=== PATIENT | male | born 1945 | race Caucasian/White ===

== ENCOUNTER 2020-10-25 09:40 | Outpatient (CLI) | payer MEDICARE, OTHER, SELFPAY ==
--- NOTE | ~2020-10-25 | XR_ITS ---
XR knee RT 3V 10/25/2020 10:01 Indication: Right knee pain Procedure: 3 views right knee Comparison: No prior studies for comparison. Findings: Moderate osteoarthritis of the right knee. No fracture or traumatic malalignment. Small elie nt effusion. No radiopaque foreign bodies. Impression: 1: Moderate osteoarthritis of the right knee. Reviewed, dictated and finalized at location A. NE MECHANIC Impression: 1: Moderate osteoarthritis of the right knee.
--- NOTE | ~2020-10-25 | XR_ITS ---
EXAMINATION: XR lumbar spine 2-3V EXAM DATE: 10/25/2020 10:01 INDICATION: No known recent injury provided at this time. Pain of the low back. TECHNIQUE: Lumber spine frontal, lateral, lateral L5-S1 projections for interpretation. There is no prior study for comparison. FINDINGS: Mild to moderate disc disease L4-S1, and at L2-3. The vertebral bodies are aligned in the A P dimension. No evidence of spondylolysis. Minimal thoracolumbar levoscoliosis. Sacrum, sacroiliac lane ints, sacral arcuate lines are intact. There is moderate lower lumbar facet arthropathy. IMPRESSION: 1. Moderate lower lumbar facet arthropathy. 2. Mild to moderate disc disease. Reviewed, dictated and finalized at location A. MARKETING ANALYST
== END 2020-10-25 09:41 | disposition home or self-care (01) ==
PROVIDERS: PCP Internal Medicine; Visit Provider Nurse Practitioner
DX: M47.817 Spondylosis without myelopathy or radiculopathy, lumbosacral region (principal); M17.11 Unilateral primary osteoarthritis, right knee; M25.461 Effusion, right knee
CPT/HCPCS: 72100; 73562

== ENCOUNTER 2020-12-10 12:30 | Outpatient (RCR) | payer MEDICARE, OTHER, SELFPAY ==
--- NOTE | 2020-11-03 15:50 | PTOPEVAL ---
Thank you for referring Sean Mendez to [facility].? The patient is scheduled to be seen for therapy? 1x/week for 6 weeks. Please review, sign, date and return this plan of care JING. I agree with and certify that the following plan of care is medically necessary. Referring Physician Date Attending Provider: Kristina Lozano NP *PT Outpatient Evaluation Start: 11/03/20 09:06 Freq: Status: Active Protocol: Document 11/03/20 09:06 YURIDIA (Rec: 11/03/20 10:12 YURIDIA [id number]) Therapy Assessment Status Assessment Status Assessment Status Evaluation Outpatient Past Medical History Past Medical History Source of Past Medical History Patient,Recalled from Previous Visit, Confirmed with Patient /Family Cardiovascular History Hx Hypertension Yes Genitourinary History Hx Other Genitourinary Disorders Yes: CKD with kidney removal Musculoskeletal History Hx Arthritis Yes Hx Back Pain Yes Endocrine History Hx Diabetes Yes Other History Hx Cancer Yes: renal Evaluation Information Problem Diagnosis low back pain, right knee pain Onset 10/22/20 Cause unknown Additional Evaluation Detail right kidney removed due to CA Subjective Information He reports his back pain has Query Text:As Reported By Patient/ been chronic, with severe Family increase of his pain ~ 2 wk ago. He has had difficulty walking for some time. He was performing more walking and standing that facilitated the increase in pain and symptoms. He had increased pain with walking, standing and sitting. States the pain is greater in his knee vs his buttock region. He is able to lift objects, but unable to walk or move with a weighted object. 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 He was performing dep transfers towards the end of his lift. He did feel like is was his back performing most of the lifting. Diagnostic Tests X-Rays For This Problem Yes: Moderate lower lumbar facet arthropathy, Moderate OA
--- NOTE | 2020-12-10 14:12 | PTOPEVAL ---
Thank you for referring Sean Mendez to [facility].? Pt has received 6 therapy visits to address his buttock/knee pain. He demonstrates progress with functional mobility with improved walking speed, improve endurance, improved LE strength, improved joint motion. He is able to perform normal daily activities with decreased pain. He has achieved most his therapy goals at this time. DC skilled therapy with pt to cont with a HEP. Please review, sign, date and return this plan of care JING. I agree with and certify that the following plan of care is medically necessary. Referring Physician Date Attending Provider: Kristina Lozano NP Referring Provider: *PT Outpatient Evaluation Start: 11/03/20 09:06 Freq: Status: Active Protocol: Document 12/10/20 12:36 CAP (Rec: 12/10/20 13:31 CAP [id number]) Therapy Assessment Status Assessment Status Assessment Status Re-evaluation Outpatient Past Medical History Past Medical History Source of Past Medical History Patient,Recalled from Previous Visit, Confirmed with Patient /Family Cardiovascular History Hx Hypertension Yes Genitourinary History Hx Other Genitourinary Disorders Yes: CKD with kidney removal Musculoskeletal History Hx Arthritis Yes Hx Back Pain Yes Endocrine History Hx Diabetes Yes Other History Hx Cancer Yes: renal Evaluation Information Problem Diagnosis low back pain, right knee pain Onset 10/22/20 Cause unknown Additional Evaluation Detail right kidney removed due to CA He reports his back pain has been chronic, with severe increase of his pain ~ 2 wk ago. He has had difficulty walking for some time. Subjective Information Since he had his knee drained Query Text:As Reported By Patient/ and an injection his knee is Family feeling much better. He is able to tolerate standing for 1 hour then had increased discomfort. Denies any problems with sitting. Denies changes in pain with lifting or carrying objects. He is performing his HEP daily Pain Assessment Timing of Pain Assessment Timing of Pain Assessment Re-assessment Pain Scale Pain Scale Used Numeric (1 - 10) Self Report Pain Assessment Right Knee(s) Reported Pain Level 1 Lowest Pain Intensity 0 Greatest Pain Intensity 3 Right Butt
== END 2020-12-14 08:01 | disposition home or self-care (01) ==
LOC: ANHPT 12:30
PROVIDERS: PCP Internal Medicine; Visit Provider Nurse Practitioner
DX: M54.41 Lumbago with sciatica, right side (principal); G89.29 Other chronic pain
CPT/HCPCS: 97110; 97162

== ENCOUNTER 2021-08-11 07:44 | Inpatient (IN) | payer MEDICARE, OTHER, SELFPAY ==
[2021-08-11] VITALS (21 sets, daily range): BP systolic 111–138; BP diastolic 71–108; PULSE 132–159; RESP 16–24; TEMP 36.6–37.1; O2SAT 97–100; BMI 29.4
--- NOTE | 2021-08-11 | ECHO_ITS ---
Patient Info Name: Sean Mendez Age: 75 years : 1945 Gender: Male Ht: 74 in Wt: 241 lbs BSA: 2.41 m2 HR: 140 bpm BP: 129 / 98 mmHg Heart Rhythm: Atrial Fibrillation Technical Quality: Fair Exam Date: 08/11/2021 1:32 PM Exam Location: [facility] Pulmonary Exam Room: [facility] Patient Status: Inpatient Admit Date: 08/11/2021 Staff Ordering Physician: Patrice Albrecht DO Analytics Director: Vanessa Gonzalez RDCS Attending Provider: Austyn Fields MD Referring Physician: Ambrocio ZHOU; Exam Type: CA echo doppler color flow Study Info Indications - new afib Complete two-dimensional, color flow and Doppler transthoracic echocardiogram is performed. Summary 1. Complete two-dimensional, color flow and Doppler transthoracic echocardiogram is performed. 2. Left ventricular chamber dimension is normal. 3. Left ventricular systolic function is normal, estimated at 60-65%. 4. There is mildly increased left ventricular wall thickness. 5. The left ventricular diastolic function is normal. 6. E/e' 8 is minimally elevated. 7. Atrial fibrillation. 8. Left atrial chamber dimension is severely enlarged. 9. Right atrial chamber dimension is severely enlarged. 10. There is moderate aortic valve sclerosis. 11. There is mild aortic valve regurgitation. 12. The mitral valve has mildly calcified annulus. 13. There is mild tricuspid valve regurgitation. 14. No pulmonary hypertension, estimated pulmonary arterial systolic pressure is 33 mmHg. 15. Normal inferior vena cava with <50% collapse upon inspiration consistent with elevated right atrial pressure, 10 mmHg. Left Ventricle Atrial fibrillation. E/e' 8 is minimally elevated. Left ventricular chamber dimension is normal. Left ventricular systolic function is normal, estimated at 60-65%. There is mildly increased left ventricular wall thickness. The left ventricular diastolic function is normal. Right Ventricle Right ventricular chamber dimension is normal. Right ventricular systolic function is normal. Left Atria Left atrial chamber dimension is severely enlarged. Right Atria Right atrial chamber dimension is severely enlarged. Aortic Valve The aortic valve is not well visualized. Cannot determine number of aortic valve leaflets. There is moderate aortic valve sclerosis. There is no aortic valve stenosis. There is mild aortic valve regurgitation. Pulmonic Valve There is no pulmonic regurgitation. Mitral Valve The mitral valve has mildly calcified annulus. There is no mitral valve stenosis. There is no mitral valve regurgitation. Tricuspid Valve There is mild tricuspid valve regurgitation. No pulmonary hypertension, estimated pulmonary arterial systolic pressure is 33 mmHg. Pericardium/Pleural There is no pericardial effusion. Inferior Vena Cava Normal inferior vena cava with <50% collapse upon inspiration consistent with elevated right atrial pressure, 10 mmHg. Aorta The aortic root size at the sinus of Valsalva is normal. Left Ventricular Outflow Tract Name Value Normal LVOT 2D LVOT Diameter 2.2 cm LVOT Doppler LVOT P
--- NOTE | ~2021-08-11 | XR_ITS ---
EXAMINATION: XR chest 2V EXAM DATE: 08/11/2021 08:09 INDICATION: Chest tightness. History hypertension. TECHNIQUE: Frontal and lateral projections of the chest obtained and reviewed. There is no prior dillon dy for comparison. FINDINGS: The lungs are clear. There are no pleural effusions. The cardiomediastinal silhouette is within normal limits. There is no pneumothorax suspected. The bones and soft tissues are unremarkab le. IMPRESSION: No acute cardiopulmonary findings. Reviewed, dictated and finalized at location A.
--- NOTE | 2021-08-11 07:57 | ECG_ITS ---
Measurements Intervals [place] Rate: 155 P: [place]: 0 QRS: -19 QRSD: 91 T: 138 QT: 280 QTc: 451 Interpretive Statements ATRIAL FIBRILLATION WITH RAPID VENTRICULAR RESPONSE INCOMPLETE RIGHT BUNDLE BRANCH BLOCK NONSPECIFIC ST & T-WAVE ABNORMALITY- ANTEROLAT/HIGH LAT LEADS BASELINE ARTIFACT- I, II, AVR ABNORMAL ECG Electronically Signed On 08-11-2021 9:53:35 CDT by Patrice Albrecht D.O.
[2021-08-11] MEDS: dilTIAZem HCl INJ 25 MG/5 ML VIAL 10 MG IV PUSH ×2 (08:03→08:22)
[2021-08-11 08:14] LABS: Basophils Absolute Auto 0.1 K/mm3 (0.0-0.1); Basophils Percent Auto 0.7 % (0.2-1.2); Eosinophils Absolute Auto 0.2 K/mm3 (0-0.3); Eosinophils Percent Auto 1.5 % (0-4.4); Hematocrit 40.2 % (42.0-52.0); Hemoglobin 13.8 g/dL (14.0-18.0); Immature Granulocyte Absolute 0.06 K/mm3 (0.00-0.031); Immature Granulocyte Percent A 0.6 % (0-0.5); Lymphocytes Absolute Auto 1.64 K/mm3 (0.9-3.2); Lymphocytes Percent Auto 15.5 % (18.3-44.2); Mean Corpuscular HGB Conc 34.3 g/dl (32-36); Mean Corpuscular Hemoglobin 32.3 pg (26-34); Mean Corpuscular Volume 94.1 fl (80-100); Mean Platelet Volume 11.1 fl (7.4-10.4); Monocytes Percent Auto 9.6 % (2.6-8.5); Neutrophils Absolute Auto 7.7 K/mm3 (1.3-6.7); Neutrophils Percent Auto 72.1 % (45.5-73.1); Platelet Count Result 192 k/mm3 (150-375); Red Blood Count 4.27 M/mm3 (4.6-6.20); Red Cell Distribution Width 12.8 % (11.5-14.5); White Blood Count 10.6 K/mm3 (4.5-10.0)
[2021-08-11 08:17] LABS: Anion Gap 11 mmol/L (8-16); Blood Urea Nitrogen 22 mg/dL (9-20); Calcium 8.9 mg/dL (8.4-10.2); Carbon Dioxide 21 mmol/L (22-30); Chloride 109 mmol/L (98-107); Estimated CRCL calculation 54 ml/min; Estimated Glomerular Filt Rate 49; Glucose 184 mg/dL (65-110); Sodium 141 mmol/L (137-145)
[2021-08-11 08:28] LABS: INR 0.9; Prothrombin Time 12.5 Seconds (11.1-14.7)
[2021-08-11 08:29] LABS: Partial Thromboplastin Time 24.9 SECONDS (22.3-36.8)
[2021-08-11 08:30] LABS: Troponin I < 0.012 ng/mL (0.000-0.034)
--- NOTE | 2021-08-11 09:05 | ED.GENADULT ---
HPI - General Adult General Chief complaint: Weakness Stated complaint: Weakness Time Seen by Provider: 08/11/21 08:02 History of Present Illness HPI narrative: Patient is a 75-year-old male who presents ER with weakness. Ongoing for the last 3 days. No chest pain or chest pressure. No shortness of breath. Reports mild orthopnea. No history of irregular heart rate. No new medications. Reports compliance with home medications. Related Data Home Medications Medication Instructions Recorded Confirmed losartan 100 mg tablet 150 mg PO DAILY tablet 03/16/20 08/11/21 carvedilol 12.5 mg tablet 25 mg PO Q12H tablet 06/16/20 08/11/21 fluticasone propionate [Flonase 2 spray INTRANASAL DAILY PRN 08/11/21 08/11/21 Allergy Relief] insulin glargine [Lantus U-100 See Rx Instructions .ROUTE .COMPLEX 08/11/21 08/11/21 Insulin] Allergies Allergy/AdvReac Type Severity Reaction Status Date / Time Careless [place] Allergy Mild POISON LUCIANO Uncoded 08/11/21 08:01 Review of Systems Review of Systems: All systems reviewed & are unremarkable except as noted in HPI and below Constitutional: Constitutional: Denies chills, Denies fever(s) and Reports weakness ENT: Denies nasal congestion and Denies sore throat Cardiovascular: Cardiovascular: Denies chest pain, Denies rapid heart rate and Denies radiating jaw, neck or arm pain Respiratory: Respiratory: Denies cough and Denies dyspnea Comments: Orthopnea Gastrointestinal: Gastrointestinal: Denies nausea and Denies vomiting Musculoskeletal: Musculoskeletal: Denies back pain and Denies muscle cramps PMF Past Medical History Medical History (Updated 08/11/21 @ 17:21 by Abhinav Baez MD) Chronic anemia Chronic kidney disease, stage 3 Baseline creatinine ranges between 1.4 and 1.60. Gastroesophageal reflux disease Hyperlipidemia Hypertension Insulin dependent type 2 diabetes mellitus Hemoglobin A1c was 7.4% on 03/21/2021. 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 Right knee DJD Surgical History Surgical History (Updated 08/11/21 @ 13:28 by Vanessa Owens PA-C) History of cataract extraction History of colonoscopy with polypectomy History of inguinal hernia repair History of renal stent (~10/18/19) Left kidney: 10/18/19 History of right nephrectomy History of vasectomy Family History Family History Mother Family history of malignant neoplasm of brain Father Ruptured, aorta Other Arthritis Hypertension Lung disease Malignant neoplasm Social History Social History (Updated 08/11/21 @ 13:38 by Vanessa Owens PA-C) Social History: Surrogate decision maker: Aliyah Mendez, spouse. Code status: Full code. Smoking packs per day: 2.5 Smoking cigarettes per day: 50.0 Years smoked: 20 Smoking pack-years: 50.00 Smoking status: Former smoker Smoking end date: 11/12/89 Alcohol intake: current Drinks per week: 3 Alcohol use details: Pt drinks occasionally. Substance use: never Substance use type: does not use Additional living arrangements comments: Resides in [place] with his . Additional occupation/education comments: Retired. Exam Narrative: GENERAL: Well-appearing, well-nourished, and in no acute distress. HEAD: Normocephalic, atraumatic. EYES: PERRL and EOMI. CHEST: Clear to auscultation. No respiratory distress. HEART: Irregular regular rate and rhythm that is tachycardic. Normal peripheral pulses. ABDOMEN: Soft, nontender, nondistended. EXTREMITIES: Normal range of motion. No edema. SKIN: Warm, dry, no rash. NEURO: Alert and oriented x3. PSYCH: Normal mood and affect. Course Course Emergency Course: Patient informed of diagnosis and treatment plan. Admit to hospitalist service. No improvement with diltiazem patient will be placed on a diltiaze
[2021-08-11] MEDS: ENOXAPARIN 120 MG/0.8 ML SYRINGE 109 MG SUB-Q (09:16)
--- NOTE | 2021-08-11 09:55 | PM.CNCAR ---
Assessment and Plan Assessment and plan (1) Atrial fibrillation with rapid ventricular response: Code(s): I48.91 - Unspecified atrial fibrillation Status: Acute Assessment and Plan: [id number] 4. Received Lovenox shot. 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 Rate control with Diltiazem. If BP is low would decrease his anithypertensive medication and/or change Coreg to Metoprolol to allow for better rate control. Obtain echo. (2) Hypertension: Qualifiers: Hypertension type: essential hypertension Qualified Code(s): I10 - Essential (primary) hypertension Code(s): I10 - Essential (primary) hypertension Status: Acute Assessment and Plan: Stable. (3) Hyperlipidemia: Qualifiers: Hyperlipidemia type: unspecified Qualified Code(s): E78.5 - Hyperlipidemia, unspecified Code(s): E78.5 - Hyperlipidemia, unspecified Status: Acute Assessment and Plan: On Atorvastatin. (4) CKD (chronic kidney disease): Qualifiers: Chronic kidney disease stage: unspecified stage Qualified Code(s): N18.9 - Chronic kidney disease, unspecified Code(s): N18.9 - Chronic kidney disease, unspecified Status: Acute Assessment and Plan: Stable. (5) Type 2 diabetes mellitus: Qualifiers: Diabetes mellitus laborer marine terminal insulin use: with laborer marine terminal use Diabetes mellitus complication status: with kidney complications Diabetes mellitus complication detail: with chronic kidney disease Chronic kidney disease stage: stage 3 (moderate) Chronic kidney disease stage 3 subtype: stage 3b (GFR 30-44) Qualified Code(s): E11.22 - Type 2 diabetes mellitus with diabetic chronic kidney disease; N18.32 - Chronic kidney disease, stage 3b; Z79.4 - termite helper (current) use of insulin Code(s): E11.9 - Type 2 diabetes mellitus without complications Status: Acute Assessment and Plan: Managed by hospitalist. (6) Sleep apnea: Code(s): G47.30 - Sleep apnea, unspecified Status: Acute Assessment and Plan: May need outpatient CPAP titration study as it has been 17 years since he had one. History of Present Illness History of Present Illness Consult date/time: 08/11/21 09:55 Reason for consult: New atrial fib. 75 yr old man presents to ED for weakness. He has a history of right nephrectomy, DM, hypertension, dyslipidemia, VICTOR MANUEL on CPAP (for 17 years). Reports for last 2 days he noted weakness and fatigue. He can normally walk up to 1 block and limited by both knee pains from arthritis. In ED he is noted to be in atrial fib with RVR and Diltiazem drip is started. He received Lovenox shot also. Denies chest pain, sob, orthopnea, PND, edema, palpitations, dizziness. Reason For Visit: afib rvr Review of Systems Review of Systems: All systems reviewed & are unremarkable except as noted in HPI and below Constitutional: Constitutional: Reports as per HPI, Denies chills, Reports fatigue and Denies fever(s) Cardiovascular: Cardiovascular: Reports as per HPI, Denies chest pain, Denies irregular heart rhythm, Denies leg edema and Denies lightheadedness Respiratory: Respiratory: Reports as per HPI and Denies dyspnea Gastrointestinal: Gastrointestinal: Reports as per HPI and Denies abdominal pain Genitourinary: Genitourinary: Reports as per HPI and Denies dysuria Musculoskeletal: Musculoskeletal: Reports as per HPI Neurologic: Reports as per HPI, Denies dizziness and Denies syncope [facility] Past Medical History Medical History Anemia Cataract CKD (chronic kidney disease) Hyperlipidemia Hypertension Kidney disease Knee effusion, right VICTOR MANUEL (obstructive sleep apnea) Osteoarthritis Renal carcinoma 04/2017 Right knee DJD Sleep apnea Type 2 diabetes mellitus Surgical History Surgical History H/O kidney removal
[2021-08-11 12:47] LABS: Troponin I < 0.012 ng/mL (0.000-0.034)
--- NOTE | 2021-08-11 13:00 | PM.IMHP ---
H&P: HPI History of Present Illness Date/Time: 08/11/21 13:00 Chief Complaint: Generalized weakness. Narrative: This is a 75-year-old male with history of hypertension, diabetes, chronic kidney disease, and sleep apnea presented to the emergency department earlier today from home for evaluation of generalized weakness. Upon waking this morning he felt very weak and tired ?like I just ran a marathon.? In triage he was found to be in atrial fibrillation with rapid ventricular response and a heart rate of 151 and with further questioning he does report a history of ?dysrhythmia? as young man in the service though he is uncertain if it was ever labeled atrial fibrillation. He has not had palpitations for many years and in fact he denies palpitations at this time though he may have felt mild fluttering and even mild chest tightness earlier today though nothing significant. He does endorse shortness of breath when walking to the mailbox this morning. In the emergency department he was given a diltiazem bolus and he has since been started on a Cardizem drip without much improvement in his rate. Dr. Albrecht has been consulted at this time he recommends changing his carvedilol to metoprolol tartrate. The patient is compliant with his CPAP while sleeping though he has not had a sleep study for over 17 years. He has no history of thyroid disease to his knowledge. He drinks 3 to 4 cups of coffee a day and 1 to 3 glasses of wine, 3 to 4 days per week. No significant soda intake. He does not take supplements. Review of Systems Review of Systems: Twelve systems were reviewed with pertinent positives and negatives as per HPI. No fever, chills, sweats. No recent cold or flu symptoms. He denies sick contacts. No orthopnea, PND, or significant lower extremity edema. No pleuritic pain. He denies nausea, vomiting, and sweats. He and his took the [employer] to [place] recently and during that trip and upon returning home he noticed that his glucose was typically in the 200s and in fact his hemoglobin A1c was 8.3% at [place] not long ago. He has since had adjustments in his basal insulin with some improvement. No blurry vision, polydipsia, or polyuria. Except as documented, all other systems were reviewed and are negative. [facility] Past Medical History Medical History Chronic anemia Chronic kidney disease, stage 3 Baseline creatinine ranges between 1.4 and 1.60. Gastroesophageal reflux disease Hyperlipidemia Hypertension Insulin dependent type 2 diabetes mellitus Hemoglobin A1c was 7.4% on 03/21/2021. 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 Right knee DJD Surgical History Surgical History History of cataract extraction History of colonoscopy with polypectomy History of inguinal hernia repair History of renal stent (~10/18/19) Left kidney: 10/18/19 History of right nephrectomy History of vasectomy Family History Family History Mother Family history of malignant neoplasm of brain Father Ruptured, aorta Other Arthritis Hypertension Lung disease Malignant neoplasm Social History Social History (Updated 08/12/21 @ 00:00 by Vanessa Owens PA-C) Social History: Surrogate decision maker: Aliyahbrittaney Mendez, spouse. Code status: Full code. Smoking packs per day: 2.5 Smoking cigarettes per day: 50.0 Years smoked: 20 Smoking pack-years: 50.00 Smoking status: Former smoker Smoking end date: 11/12/89 Alcohol intake: current Drinks per week: 3 Alcohol use details: Patient drinks 1 to 3 glasses of wine, 3 to 4 days a week. Substance use: never Substance use type: does not use Additional living arrangements comments: Resides in [place] with his . Additional o
[2021-08-11] MEDS: METOPROLOL TARTRATE 25 MG TABLET PO ×2 (13:16→16:21)
--- NOTE | 2021-08-11 14:56 | ADMGEN ---
This patient, Sean Mendez, was admitted to IMU Room 207-01 @ 1110. Patient/family oriented to hospital policies and general routines including ID bracelet, bed and alarms, visiting hours, pain management, procedures, bathroom and other care routines, personal items, smoking policy, room service/diet, and visiting hours. Information on how to activate the Rapid Response Team has been discussed. Patient/Family are encouraged to report perceived risks to care and to ask questions if they do not understand what they are told or what they should do.
[2021-08-11 16:15] LABS: Troponin I < 0.012 ng/mL (0.000-0.034)
[2021-08-11 16:25] LABS: Glucose Point of Care 149 mg/dl (65-105)
[2021-08-11 16:47] LABS: Alanine Aminotransferase 22 U/L (4-50); Albumin Level 3.9 g/dL (3.5-5.1); Alkaline Phosphatase 75 U/L (38-126); Aspartate Amino Transferase 23 U/L (17-59); Bilirubin,Total 0.7 mg/dL (0.2-1.3); Magnesium 2.2 mg/dL (1.6-2.3)
[2021-08-11] MEDS: METOPROLOL TARTRATE 50 MG TAB PO ×2 (18:38→23:52)
[2021-08-11 20:30] LABS: Glucose Point of Care 190 mg/dl (65-105)
[2021-08-11] MEDS: INSULIN GLARGINE (*BKC) 100 UNITS/ML 25 UNITS SUB-Q (20:40)
[2021-08-11] MEDS: APIXABAN 5 MG TABLET PO (20:42)
[2021-08-11] MEDS: AMIODARONE 150 MG/D5W 100 ML 150 MG/100 ML BAG 600 MG IV CONT (21:06)
[2021-08-11] MEDS: AMIODARONE 360 MG/D5W 200 ML 360 MG/200 ML BAG 33.33 MG IV CONT (21:09)
[2021-08-12] VITALS (22 sets, daily range): BP systolic 121–150; BP diastolic 71–97; PULSE 64–147; RESP 15–22; TEMP 36.1–37.1; O2SAT 97–100
[2021-08-12] MEDS: AMIODARONE 360 MG/D5W 200 ML 360 MG/200 ML BAG 16.67 MG IV CONT ×2 (02:56→16:02)
[2021-08-12 05:09] LABS: Hematocrit 36.4 % (42.0-52.0); Hemoglobin 12.7 g/dL (14.0-18.0); Mean Corpuscular HGB Conc 34.9 g/dl (32-36); Mean Corpuscular Hemoglobin 32.6 pg (26-34); Mean Corpuscular Volume 93.3 fl (80-100); Mean Platelet Volume 11.3 fl (7.4-10.4); Platelet Count Result 191 k/mm3 (150-375); Red Cell Distribution Width 12.7 % (11.5-14.5); White Blood Count 12.1 K/mm3 (4.5-10.0)
[2021-08-12 05:27] LABS: Anion Gap 10 mmol/L (8-16); Blood Urea Nitrogen 20 mg/dL (9-20); Calcium 8.7 mg/dL (8.4-10.2); Carbon Dioxide 26 mmol/L (22-30); Chloride 104 mmol/L (98-107); Estimated CRCL calculation 45 ml/min; Estimated Glomerular Filt Rate 46; Glucose 156 mg/dL (65-110); Potassium 3.6 mmol/L (3.4-5.0); Sodium 140 mmol/L (137-145)
[2021-08-12] MEDS: METOPROLOL TARTRATE 50 MG TAB PO ×3 (06:06→18:06)
--- NOTE | 2021-08-12 07:48 | ECG_ITS ---
Measurements Intervals [place] Rate: 138 P: [place]: 0 QRS: -14 QRSD: 95 T: 112 QT: 339 QTc: 515 Interpretive Statements ATRIAL FIBRILLATION WITH RAPID VENTRICULAR RESPONSE NONSPECIFIC ST & T-WAVE ABNORMALITY- ANTEROLAT/HIGH LAT LEADS BASELINE WANDER- V1 ABNORMAL ECG Electronically Signed On 08-12-2021 9:53:53 CDT by Patrice Albrecht D.O.
--- NOTE | 2021-08-12 08:41 | PM.PNCARD ---
Progress Note: A&P Assessment and Plan (1) Atrial fibrillation with rapid ventricular response: Code(s): I48.91 - Unspecified atrial fibrillation Status: Acute Assessment and Plan: [id number] 4. Started on Eliquis on 08/11/21. Rate control with Diltiazem and Metoprolol ATC but HR was resistant at 140-150 bpm. Changed overnight from Diltiazem drip to Amiodarone to attempt chemical cardioversion. He is still in atrial fib at 140's bpm. Plan for MILO/Cardioversion with anesthesia when anesthesiology is available. Echo shows normal EF 60-65%, severe biatrial enlargement (2) Hypertension: Qualifiers: Hypertension type: essential hypertension Qualified Code(s): I10 - Essential (primary) hypertension Code(s): I10 - Essential (primary) hypertension Status: Acute Assessment and Plan: Stable. (3) Hyperlipidemia: Qualifiers: Hyperlipidemia type: unspecified Qualified Code(s): E78.5 - Hyperlipidemia, unspecified Code(s): E78.5 - Hyperlipidemia, unspecified Status: Acute Assessment and Plan: On Atorvastatin. (4) CKD (chronic kidney disease): Qualifiers: Chronic kidney disease stage: unspecified stage Qualified Code(s): N18.9 - Chronic kidney disease, unspecified Code(s): N18.9 - Chronic kidney disease, unspecified Status: Acute Assessment and Plan: Stable. (5) Type 2 diabetes mellitus: Qualifiers: Diabetes mellitus computer terminal operator insulin use: with computer terminal operator use Diabetes mellitus complication status: with kidney complications Diabetes mellitus complication detail: with chronic kidney disease Chronic kidney disease stage: stage 3 (moderate) Chronic kidney disease stage 3 subtype: stage 3b (GFR 30-44) Qualified Code(s): E11.22 - Type 2 diabetes mellitus with diabetic chronic kidney disease; N18.32 - Chronic kidney disease, stage 3b; Z79.4 - vermin exterminator (current) use of insulin Code(s): E11.9 - Type 2 diabetes mellitus without complications Status: Acute Assessment and Plan: Managed by hospitalist. (6) Sleep apnea: Code(s): G47.30 - Sleep apnea, unspecified Status: Acute Assessment and Plan: May need outpatient CPAP titration study as it has been 17 years since he had one. Subjective Date/time seen: 08/12/21 08:41 Denies chest pain or sob. He does feel fatigue. Exam Const: General: cooperative, healthy appearing and comfortable Nutritional Appearance: obese Resp: Auscultation: clear to auscultation bilaterally, no crackles, no rales, no rhonchi and no wheezes Cardio: Jugular venous distension: no JVD Rate: tachycardic Rhythm: abnormal rhythm Heart sounds: no murmurs Peripheral pulses: dorsalis pedis present GI: GI Palp: No abdominal tenderness and Yes Soft to palpation Neuro: General: oriented to person, oriented to place and oriented to time Extrem: Right lower extremity: no edema Left lower extremity: no edema Objective Data Vital Signs Vital Signs: Vital Signs - 24 hr 08/11/21 09:13 08/11/21 09:37 08/11/21 10:38 Temperature Pulse Rate 153 H 159 H 150 H Respiratory Rate Blood Pressure 122/108 H 129/98 H Pulse Oximetry 08/11/21 10:59 08/11/21 11:30 08/11/21 12:00 Temperature 97.9 F Pulse Rate 141 H 152 H 152 H Respiratory Rate 16 20 Blood Pressure 128/79 111/71 111/71 Pulse Oximetry 100 98 08/11/21 12:30 08/11/21 13:16 08/11/21 14:00 Temperature 98.2 F Pulse Rate 150 H 156 H 145 H Respiratory Rate 16 Blood Pressure 121/71 Pulse Oximetry 98 08/11/21 15:51 08/11/21 16:00 08/11/21 16:21 Temperature 98 F Pulse Rate 147 H 140 H 140 H Respiratory Rate 24 H Blood Pressure 115/82 Pulse Oximetry 98 08/11/21 18:00 08/11/21 18:38 08/11/21 18:40 Temperature Pulse Rate 138 H 140 H 140 H Respiratory Rate Blood Pressure 138/92 H Pulse Oximetry 08/11/21 20:00 08/11/21 21:06 08/11/21 21:
[2021-08-12 09:33] LABS: Glucose Point of Care 164 mg/dl (65-105)
[2021-08-12] MEDS: SODIUM CHLORIDE 0.9% IV 1,000 ML 30 ML IV CONT (10:28)
[2021-08-12] MEDS: INSULIN GLARGINE (*BKC) 100 UNITS/ML 25 UNITS SUB-Q (10:28)
[2021-08-12] MEDS: LOSARTAN POTASSIUM 50 MG TABLET 150 MG PO (10:29)
[2021-08-12] MEDS: ATORVASTATIN 40 MG TABLET PO (10:30)
[2021-08-12] MEDS: amLODIPine BESYLATE 5 MG TABLET 10 MG PO (10:30)
--- NOTE | 2021-08-12 11:53 | PM.IMPN ---
Progress Note: A&P Assessment and Plan (1) Atrial fibrillation with rapid ventricular response: Code(s): I48.91 - Unspecified atrial fibrillation Status: Acute Assessment and Plan: Patient continues to be tachycardic and is currently on amiodarone and metoprolol -plan for MILO cardioversion later today I believe -he has been transition from Lovenox to Eliquis and this is affordable to him -TSH normal. Echo reviewed -appreciate cardiology's recommendations -no signs or symptoms to indicate infection as a cause of AFib. Leukocytosis likely reactionary (2) Chronic kidney disease, stage 3: Code(s): N18.30 - Chronic kidney disease, stage 3 unspecified Status: Acute Assessment and Plan: Known to the patient and at baseline -last creatinine November 2020 was 1.6 -continue routine follow-up (3) Chronic anemia: Code(s): D64.9 - Anemia, unspecified Status: Acute Assessment and Plan: Hemoglobin stable, 12.7 and hematocrit 36.4. No signs of bleeding on exam (4) Hypertension: Qualifiers: Hypertension type: essential hypertension Qualified Code(s): I10 - Essential (primary) hypertension Code(s): I10 - Essential (primary) hypertension Status: Acute Assessment and Plan: Last blood pressure 128/88 -continue metoprolol, losartan and Norvasc (5) Obstructive sleep apnea on CPAP: Code(s): G47.33 - Obstructive sleep apnea (adult) (pediatric); Z99.89 - Dependence on other enabling machines and devices Status: Acute Assessment and Plan: Continue CPAP (6) Insulin dependent type 2 diabetes mellitus: Code(s): E11.9 - Type 2 diabetes mellitus without complications; Z79.4 - halfway (current) use of insulin Status: Acute Assessment and Plan: Last glucose 164 -continue sliding scale insulin and Lantus -hold home metformin Time Spent With Patient Time with patient: 25 - 35 minutes Subjective Date/time seen: 08/12/21 11:53 Interval history: Pt is a 75-year-old male here for new onset AFib. Patient was seen today and doing well. He had no complaints. He said his palpitations improved any feels okay. Pt denies nausea, vomiting, fevers, chills, constipation, diarrhea, chest pain, sob, or abdominal pain. Review of Systems Review of Systems: All systems reviewed & are unremarkable except as noted in HPI and below Exam Narrative: General: Well developed well nourished patient in NAD HEENT: normocephalic Neck: supple Neuro: Alert and oriented x4 CV: Irregularly irregular with a rate of 130 on exam. Telemetry shows atrial fibrillation rate of 130-170 throughout the night Resp:CTA Abd: Soft, non distended. No pain to palpation. Positive bowel sounds Extremities: No swelling, erythema, or pain to palpation. Objective Data Vital Signs Vital Signs: Vital Signs - 24 hr 08/11/21 12:00 08/11/21 12:30 08/11/21 13:16 Temperature 98.2 F Pulse Rate 152 H 150 H 156 H Respiratory Rate 16 Blood Pressure 111/71 121/71 Pulse Oximetry 98 08/11/21 14:00 08/11/21 15:51 08/11/21 16:00 Temperature 98 F Pulse Rate 145 H 147 H 140 H Respiratory Rate 24 H Blood Pressure 115/82 Pulse Oximetry 98 08/11/21 16:21 08/11/21 18:00 08/11/21 18:38 Temperature Pulse Rate 140 H 138 H 140 H Respiratory Rate Blood Pressure Pulse Oximetry 08/11/21 18:40 08/11/21 20:00 08/11/21 21:06 Temperature 98.7 F Pulse Rate 140 H 135 H 145 H Respiratory Rate 20 Blood Pressure 138/92 H 114/84 Pulse Oximetry 97 08/11/21 21:09 08/11/21 22:00 08/11/21 23:52 Temperature Pulse Rate 139 H 132 H 143 H Respiratory Rate Blood Pressure Pulse Oximetry 08/12/21 00:00 08/12/21 02:00 08/12/21 02:56 Temperature 97.9 F Pulse Rate 141 H 132 H 121 H Respiratory Rate 18 Blood Pressure 129/97 H Pulse Oximetry 100 08/12/21 04:00
--- NOTE | 2021-08-12 12:04 | WPDANESEPPF ---
Anes - Initial Pre Proc Eval Procedure: Operation Date: 08/12/21 13:00 Proposed Procedures p Trans Esophageal Echo - Patrice Albrecht DO s Electrical Cardioversion - Patrice Albrecht DO Date/Time: 08/12/21 12:04 Surgeon: Ayesha Argueta PA-C Pre Op Diagnosis: afib rvr Patient Data Age: 75 Gender: M Height: 1.88 m Weight: 107.5 kg Last Vital Signs Temp 97.2 F L 08/12/21 08:47 Pulse 133 H 08/12/21 08:47 Resp 20 08/12/21 08:47 BP 128/88 08/12/21 08:47 Pulse Ox 97 08/12/21 08:47 Allergies Allergy/AdvReac Type Severity Reaction Status Date / Time Careless [place] Allergy Mild POISON LUCIANO Uncoded 08/11/21 08:01 Home Medications Medication Instructions Recorded Confirmed Type losartan 100 mg tablet 150 mg PO DAILY tablet 03/16/20 08/11/21 History carvedilol 12.5 mg tablet 25 mg PO Q12H tablet 06/16/20 08/11/21 History amlodipine 10 mg tablet 10 mg PO DAILY #90 tablet 12/16/20 08/11/21 Rx atorvastatin 40 mg tablet 40 mg PO DAILY #90 tablet 03/09/21 08/11/21 Rx triamcinolone acetonide 0.1 % 1 applic TOPICAL TID PRN #30 g 04/18/21 08/11/21 Rx topical ointment metformin 500 mg tablet 500 mg PO BID #180 tablet 05/05/21 08/11/21 Rx blood sugar diagnostic #100 each 08/08/21 08/11/21 Rx pen needle, diabetic 31 gauge x #100 each 08/08/21 08/11/21 Rx 5/16 fluticasone propionate [Flonase 2 spray INTRANASAL DAILY PRN 08/11/21 08/11/21 History Allergy Relief] insulin glargine [Lantus U-100 See Rx Instructions .ROUTE .COMPLEX 08/11/21 08/11/21 History Insulin] Laboratory Tests 08/11/21 08/11/21 08/11/21 12:05 15:17 15:17 WBC RBC Hgb Hct MCV MCH MCHC RDW Plt Count MPV Sodium Potassium Chloride Carbon Dioxide Anion Gap BUN Creatinine Estim Creat Clear Calc Estimated GFR Glucose POC Capillary Glucose Calcium Magnesium 2.2 mg/dL mg/dL (1.6-2.3) Total Bilirubin 0.7 mg/dL mg/dL (0.2-1.3) Direct Bilirubin 0.0 mg/dL mg/dL (0-0.3) AST 23 U/L U/L (17-59) ALT 22 U/L U/L (4-50) Alkaline Phosphatase 75 U/L U/L (38-126) Troponin I < 0.012 ng/mL ng/mL < 0.012 ng/mL ng/mL (0.000-0.034) (0.000-0.034) Total Protein 6.0 g/dL L g/dL (6.3-8.2) Albumin 3.9 g/dL g/dL (3.5-5.1) TSH (Reflex) 08/11/21 08/11/21 08/11/21 15:17 16:21 20:27 WBC RBC Hgb Hct MCV MCH MCHC RDW Plt Count MPV Sodium Potassium Chloride Carbon Dioxide Anion Gap BUN Creatinine Estim Creat Clear Calc Estimated GFR Glucose POC Capillary Glucose 149 mg/dl H mg/dl 190 mg/dl H mg/dl (65-105) (65-105) Calcium Magnesium Total Bilirubin Direct Bilirubin AST ALT Alkaline Phosphatase Troponin I Total Protein Albumin TSH (Reflex) 1.960 uIU/mL uIU/mL (0.465-4.68) 08/12/21 08/12/21 08/12/21 04:38 04:38 08:21 WBC 12.1 K/mm3 H K/mm3 (4.5-10.0) RBC 3.90 M/mm3 L M/mm3 (4.6-6.20) Hgb 12.7 g/dL L g/dL (14.0-18.0) Hct 36.4 % L % (42.0-52.0) MCV 93.3 fl fl (80-100) MCH 32.6 pg pg (26-34) MCHC 34.9 g/dl g/dl (32-36) RDW 12.7 % % (11.5-14.5) Plt Count 191 k/mm3 k/mm3 (150-375) MPV 11.3 fl H fl (7.4-10.4) Sodium 140 mmol/L mmol/L (137-145) Potass
[2021-08-12] MEDS: APIXABAN 5 MG TABLET PO ×2 (12:45→21:32)
[2021-08-12 12:57] LABS: Glucose Point of Care 138 mg/dl (65-105)
--- NOTE | 2021-08-12 13:29 | SUR.OPER ---
Upon arrival of Dr. Albrecht to GI Lab for procedure patient was found to be in NSR. Procedure not done. Report called to Rosi in IMU and patient returned to IMU room 207.
[2021-08-12 17:27] LABS: Glucose Point of Care 108 mg/dl (65-105)
[2021-08-12] MEDS: INSULIN GLARGINE (*BKC) 100 UNITS/ML 20 UNITS SUB-Q (21:31)
[2021-08-12] MEDS: AMIODARONE HCL 200 MG TABLET PO (21:32)
[2021-08-12] MEDS: carvediloL 25 MG TABLET PO (21:33)
[2021-08-12 21:38] LABS: Glucose Point of Care 151 mg/dl (65-105)
[2021-08-13] VITALS (8 sets, daily range): BP systolic 120–141; BP diastolic 73–76; PULSE 61–82; RESP 16–18; TEMP 36–36.8; O2SAT 99–100
[2021-08-13 06:07] LABS: Hematocrit 36.5 % (42.0-52.0); Hemoglobin 12.7 g/dL (14.0-18.0); Mean Corpuscular HGB Conc 34.8 g/dl (32-36); Mean Corpuscular Hemoglobin 31.8 pg (26-34); Mean Corpuscular Volume 91.5 fl (80-100); Mean Platelet Volume 11.8 fl (7.4-10.4); Platelet Count Result 188 k/mm3 (150-375); Red Blood Count 3.99 M/mm3 (4.6-6.20); Red Cell Distribution Width 12.3 % (11.5-14.5); White Blood Count 8.8 K/mm3 (4.5-10.0)
[2021-08-13 06:27] LABS: Anion Gap 9 mmol/L (8-16); Blood Urea Nitrogen 19 mg/dL (9-20); Calcium 8.2 mg/dL (8.4-10.2); Carbon Dioxide 26 mmol/L (22-30); Chloride 105 mmol/L (98-107); Estimated CRCL calculation 45 ml/min; Estimated Glomerular Filt Rate 46; Glucose 96 mg/dL (65-110); Magnesium 2.1 mg/dL (1.6-2.3); Potassium 3.1 mmol/L (3.4-5.0); Sodium 140 mmol/L (137-145)
--- NOTE | 2021-08-13 07:00 | ECG_ITS ---
Measurements Intervals [place] Rate: 64 P: 32 AR: 158 QRS: -24 QRSD: 98 T: 5 QT: 488 QTc: 505 Interpretive Statements SINUS RHYTHM RSR' IN V1 OR V2, CONSIDER RIGHT VENTRICULAR HYPERTROPHY OR RIGHT VCD DELAYED PRECORDIAL R/S TRANSITION VOLTAGE CRITERIA FOR LVH BORDERLINE T WAVE ABNORMALITY- INFERIOR LEADS PROLONGED QT INTERVAL ABNORMAL ECG Electronically Signed On 08-13-2021 8:43:52 CDT by Patrice Albrecht D.O.
[2021-08-13 08:51] LABS: Glucose Point of Care 101 mg/dl (65-105)
--- NOTE | 2021-08-13 09:14 | PM.PNCARD ---
Progress Note: A&P Assessment and Plan (1) Atrial fibrillation with rapid ventricular response: Code(s): I48.91 - Unspecified atrial fibrillation Status: Acute Assessment and Plan: [id number] 4. Started on Eliquis on 08/11/21. Echo shows normal EF 60-65%, severe biatrial enlargement. Rate control with Diltiazem and Metoprolol ATC but HR was resistant at 140-150 bpm. Changed overnight from Diltiazem drip to Amiodarone to attempt chemical cardioversion. He is still in atrial fib at 140's bpm. About to have MILO/Cardioversion with anesthesia, and it was noted he converted to sinus rhythm with Amiodarone drip. Due to prolonged QTc, will decrease Amiodarone 200 mg daily. May d/c home and f/u with me in 1 week. (2) Hypertension: Qualifiers: Hypertension type: essential hypertension Qualified Code(s): I10 - Essential (primary) hypertension Code(s): I10 - Essential (primary) hypertension Status: Acute Assessment and Plan: Stable. (3) Hyperlipidemia: Qualifiers: Hyperlipidemia type: unspecified Qualified Code(s): E78.5 - Hyperlipidemia, unspecified Code(s): E78.5 - Hyperlipidemia, unspecified Status: Acute Assessment and Plan: On Atorvastatin. (4) CKD (chronic kidney disease): Qualifiers: Chronic kidney disease stage: unspecified stage Qualified Code(s): N18.9 - Chronic kidney disease, unspecified Code(s): N18.9 - Chronic kidney disease, unspecified Status: Acute Assessment and Plan: Stable. (5) Type 2 diabetes mellitus: Qualifiers: Diabetes mellitus half-way insulin use: with predatory animal exterminator use Diabetes mellitus complication status: with kidney complications Diabetes mellitus complication detail: with chronic kidney disease Chronic kidney disease stage: stage 3 (moderate) Chronic kidney disease stage 3 subtype: stage 3b (GFR 30-44) Qualified Code(s): E11.22 - Type 2 diabetes mellitus with diabetic chronic kidney disease; N18.32 - Chronic kidney disease, stage 3b; Z79.4 - intermediate designer (current) use of insulin Code(s): E11.9 - Type 2 diabetes mellitus without complications Status: Acute Assessment and Plan: Managed by hospitalist. (6) Sleep apnea: Code(s): G47.30 - Sleep apnea, unspecified Status: Acute Assessment and Plan: May need outpatient CPAP titration study as it has been 17 years since he had one. Subjective Date/time seen: 08/13/21 09:14 He no longer has weakness since converting back to sinus rhythm. No chest pain or sob. He wants to go home. Exam Const: General: cooperative, healthy appearing and comfortable Nutritional Appearance: obese Resp: Auscultation: clear to auscultation bilaterally, no crackles, no rales, no rhonchi and no wheezes Cardio: Jugular venous distension: no JVD Rate: regular rate Rhythm: regular rhythm Heart sounds: no murmurs Peripheral pulses: dorsalis pedis present GI: GI Palp: No abdominal tenderness and Yes Soft to palpation Neuro: General: oriented to person, oriented to place and oriented to time Extrem: Right lower extremity: no edema Left lower extremity: no edema Objective Data Vital Signs Vital Signs: Vital Signs - 24 hr 08/12/21 10:00 08/12/21 12:00 08/12/21 12:50 Temperature 98.4 F Pulse Rate 136 H 142 H 142 H Respiratory Rate 22 H Blood Pressure 145/79 H Pulse Oximetry 98 08/12/21 14:00 08/12/21 16:00 08/12/21 16:03 Temperature 97.2 F L Pulse Rate 74 72 76 Respiratory Rate 16 Blood Pressure 150/78 H Pulse Oximetry 98 08/12/21 18:00 08/12/21 18:06 08/12/21 20:00 Temperature 98.8 F Pulse Rate 81 72 65 Respiratory Rate 16 Blood Pressure 138/77 Pulse Oximetry 99 08/12/21 21:32 08/12/21 21:33 08/12/21 22:00 Temperature Pulse Rate 65 65 64 Respiratory Rate Blood Pressure Pulse Oximetry 08/12/21 22:25 08/12/21 23:44 08/13/21 00:00 [place]
--- NOTE | 2021-08-13 09:25 | PM.DS ---
DS: Admitting Diagnosis Discharge Date 08/13/21 Admitting Diagnosis new onset afib DS: Discharge Diagnosis Discharge Diagnosis (1) Atrial fibrillation with rapid ventricular response: Code(s): I48.91 - Unspecified atrial fibrillation Status: Acute Assessment and Plan: Pt converted on his own with amiodarone without cardioversion -cardiology recommends continuing amiodarone at discharge at 200mg daily -He has been placed on Eliquis -TSH normal. Echo stated below -plan to f/u with Dr. Albrecht echo:1. Complete two-dimensional, color flow and Doppler transthoracic echocardiogram is performed. 2. Left ventricular chamber dimension is normal. 3. Left ventricular systolic function is normal, estimated at 60-65%. 4. There is mildly increased left ventricular wall thickness. 5. The left ventricular diastolic function is normal. 6. E/e' 8 is minimally elevated. 7. Atrial fibrillation. 8. Left atrial chamber dimension is severely enlarged. 9. Right atrial chamber dimension is severely enlarged. 10. There is moderate aortic valve sclerosis. 11. There is mild aortic valve regurgitation. 12. The mitral valve has mildly calcified annulus. 13. There is mild tricuspid valve regurgitation. 14. No pulmonary hypertension, estimated pulmonary arterial systolic pressure is 33 mmHg. 15. Normal inferior vena cava with <50% collapse upon inspiration consistent with elevated right atrial pressure, 10 mmHg. (2) Chronic kidney disease, stage 3: Code(s): N18.30 - Chronic kidney disease, stage 3 unspecified Status: Acute Assessment and Plan: Known to the patient and at baseline -last creatinine November 2020 was 1.6 -continue routine follow-up (3) Chronic anemia: Code(s): D64.9 - Anemia, unspecified Status: Acute Assessment and Plan: Hemoglobin stable, 12.7 and hematocrit 36.5. -No signs of bleeding on exam (4) Hypertension: Qualifiers: Hypertension type: essential hypertension Qualified Code(s): I10 - Essential (primary) hypertension Code(s): I10 - Essential (primary) hypertension Status: Acute Assessment and Plan: Last blood pressure 141/76 -continue carvediolol, losartan and Norvasc (5) Obstructive sleep apnea on CPAP: Code(s): G47.33 - Obstructive sleep apnea (adult) (pediatric); Z99.89 - Dependence on other enabling machines and devices Status: Acute Assessment and Plan: Continue CPAP (6) Insulin dependent type 2 diabetes mellitus: Code(s): E11.9 - Type 2 diabetes mellitus without complications; Z79.4 - correction (current) use of insulin Status: Acute Assessment and Plan: Last glucose 101 -continue home metformin (7) QT prolongation: Code(s): R94.31 - Abnormal electrocardiogram [ECG] [EKG] Status: Acute Assessment and Plan: Noted on EKG, cardiology aware -he recommends continuing amiodarone but decreased dose. Follow-up in the office -pt with no CP or dizziness DS: Summary Hospital Course Hospital Course: Patient is a 75-year-old male with history of diabetes, chronic kidney disease and hypertension who presented emergency room for weakness and palpitations. EKG showed AFib with RVR with incomplete right bundle-branch block and nonspecific ST and T-wave abnormalities. Chest x-ray negative. This is a new diagnosis for the patient he was admitted to the hospitalist service and started on a Cardizem drip where he continued to have an increased heart rate. He had no chest pain and troponins were negative x3. Echo detailed above but no wall motion abnormalities. Cardiology was consulted and he was started on amiodarone. Who was scheduled to have a cardioversion but converted with the amiodarone. He was in normal sinus rhythm at discharge with a rate of 65 with no symptoms. His weakness had improved. He did see Dr. Albrecht and he i
[2021-08-13] MEDS: POTASSIUM CHLORIDE 20 MEQ TABLET 40 MEQ PO (10:21)
[2021-08-13] MEDS: APIXABAN 5 MG TABLET PO (10:22)
[2021-08-13] MEDS: LOSARTAN POTASSIUM 50 MG TABLET 150 MG PO (10:23)
[2021-08-13] MEDS: carvediloL 25 MG TABLET PO (10:23)
[2021-08-13] MEDS: ATORVASTATIN 40 MG TABLET PO (10:24)
[2021-08-13] MEDS: AMIODARONE HCL 200 MG TABLET PO (10:24)
--- NOTE | 2021-08-13 12:02 | PC.NURSE ---
Patient discharged to home at 11:45. Education was provided on medication and bleeding precautions. Patient had no further questions at this time.
== END 2021-08-13 11:45 | disposition home or self-care (01) | DRG 310 ==
LOC: ANHED 08:04 → ANHIMU 09:39
PROVIDERS: Physician Assistant; Admitting Provider Internal Medicine; Emergency Provider Emergency Medicine; PCP Internal Medicine; Visit Provider Family Medicine
DX: I48.91 Unspecified atrial fibrillation (principal); I12.9 Hypertensive chronic kidney disease with stage 1 through stage 4 chronic kidney disease, or unspecified chronic kidney disease; E11.22 Type 2 diabetes mellitus with diabetic chronic kidney disease; N18.32 Chronic kidney disease, stage 3b; G47.33 Obstructive sleep apnea (adult) (pediatric); Z99.89 Dependence on other enabling machines and devices; D64.9 Anemia, unspecified; K21.9 Gastro-esophageal reflux disease without esophagitis; E78.5 Hyperlipidemia, unspecified; M17.11 Unilateral primary osteoarthritis, right knee; R94.31 Abnormal electrocardiogram [ECG] [EKG]; Z79.4 Long term (current) use of insulin; Z79.84 Long term (current) use of oral hypoglycemic drugs; Z79.899 Other long term (current) drug therapy; Z85.528 Personal history of other malignant neoplasm of kidney; Z90.5 Acquired absence of kidney; Z98.49 Cataract extraction status, unspecified eye
CPT/HCPCS: 36415; 71046; 80048; 80076; 82948; 83735; 84443; 84484; 85025; 85027; 85610; 85730; 93005; 93306; 96365; 96366; 96372; 96376; 99285; A9270; J0282; J1650; J1815; J7030; J7040

== ENCOUNTER 2021-08-30 08:36 | Outpatient (CLI) | payer MEDICARE, OTHER, SELFPAY ==
--- NOTE | 2021-09-15 12:54 | WPDSLEEPSTUD ---
Sleep Study Date of Study: 08/30/21 <Callie Mcintyre DO - Last Filed: 09/15/21 14:12> Ordering Provider: Patrice Albrecht DO <Callie Mcintyre, - Last Filed: 09/15/21 14:12> Interpreting Physician: Callie Mcintyre DO <Callie Mcintyre - Last Filed: 09/15/21 14:12> Sleep Study Type: Split Polysomnogram <Callie Mcintyre - Last Filed: 09/15/21 14:12> Height: 1.89 m <Callie Mcintyre - Last Filed: 09/15/21 14:12> Weight: 61.235 kg <Callie Mcintyre DO - Last Filed: 09/15/21 14:12> Body Mass Index: 17.1 <Callie Mcintyre - Last Filed: 09/15/21 14:12> Neck Circumference (inches): 16 <Callie Mcintyre DO - Last Filed: 09/15/21 14:12> [place]: 6 <Callie Mcintyre DO - Last Filed: 09/15/21 14:12> Reason for Sleep Study The patient was previously diagnosed with VICTOR MANUEL in 2003 and has been on CPAP since then. The patient recently developed atrial fibrillation and his landscaping and groundskeeping laborer wants to make sure that his CPAP pressure is optimal. <Callie Mcintyre DO - Last Filed: 09/15/21 14:12> Sleep History The patient is a 76-year-old male with newly diagnosed atrial fibrillation, diabetes, hypertension, Stage 3 CKD, dyslipidemia and VICTOR MANUEL on CPAP since 2003. The patient states that he frequently falls asleep without his CPAP on. He is currently retired. His landscaping and groundskeeping laborer wanted to ensure that his CPAP was at the optimal pressure due to new onset atrial fibrillation. The patient occasionally awakens from sleep short of breath. He frequently snores loud enough that others complain. He occasionally has trouble sleeping when he has a cold. He frequently wakes up gasping for air throughout the night. He rarely sweats excessively at night. He rarely falls asleep during the day and never while driving. He denies sleep paralysis and cataplexy. He rarely experiences vivid dreamlike scenes upon awakening or falling asleep. He denies feeling sad or depressed. He rarely feels anxious. He rarely notices parts of his body jerk. He rarely kicks throughout the night. He rarely experiences crawling and aching feelings in his legs. He occasionally has leg pain throughout the night. He occasionally grinds his teeth during sleep but never awakens with jaw pain in the morning. He is occasionally bothered by pain during the day but is rarely awakened by pain during the night. He frequently wakes up feeling stiff in the morning with sore and achy muscles. The patient goes to bed between 10:00 p.m. and 11:00 p.m. on both weekdays and weekends. It takes him 5-10 minutes to fall asleep at night. He will wake up 1-2 times throughout the night. It takes him about 30 minutes to an hour to fall asleep. When he wakes up in the night, he will start reading. He wakes up between 5:00 a.m. and 6:00 a.m. on both the weekdays and weekends. He typically gets 5-7 hours of sleep per night. He will stay in bed for 10 minutes after awakening in the morning. He currently lives with his . He does not consume any caffeinated beverages within 2 hours of going to bed. He does not engage in physical exercise before bedtime. He will read and watch television before falling asleep. He does take naps in the afternoon/evening and they are refreshing. he quit smoking cigarettes 30 years ago. He drinks 2 cups of caffeinated beverage per day. He will have an 8 oz glass of wine daily. He denies recreational drug use. <Callie Mcintyre DO - Last Filed: 09/15/21 14:12> [facility] Past Medical History Medical History: Medical History Chronic anemia Chronic kidney disease, stage 3 Baseline creatinine ranges between 1.4 and 1.60. Gastroesophageal reflux disease Hyperlipidemia Hypertension Insulin dependent type 2 diabetes mellitus Hemoglobin A1c was 7.4% on 03/21/2021. Obstructive sleep apnea on CPAP Osteoarthr
[2021-09-15 13:00] VITALS: BMI 17.1
== END 2021-08-31 05:38 | disposition home or self-care (01) ==
LOC: ANHCSM 08:37
PROVIDERS: PCP Internal Medicine; Visit Provider Internal Medicine Cardiovascular Disease
DX: G47.33 Obstructive sleep apnea (adult) (pediatric) (principal)
CPT/HCPCS: 95811; 99199

== ENCOUNTER 2022-04-20 09:17 | Outpatient (CLI) | payer MEDICARE, OTHER, SELFPAY ==
--- NOTE | ~2022-04-20 | NM_ITS ---
EXAMINATION: NM elbert stress w perfusion DATE: 04/20/2022 13:30 INDICATION: Abnormal electrocardiogram. Preop. TECHNIQUE: Rest images were obtained following intravenous administration of 10.1 mCi Tc99m tetrofosm in (Myoview). The patient was infused intravenously with Lexiscan (regadenoson). Then, 32 mCi Tc99m t etrofosmin (Myoview) was administered intravenously, and stress images were obtained. Data was recons tructed into short axis and horizontal and vertical long axis SPECT images. Gated SPECT images were a lso obtained. COMPARISON: None. FINDINGS: There is increased subdiaphragmatic activity and diaphragm attenuation decreasing sensitivi ty and specificity in the inferior wall. There is a small, mild, fixed perfusion defect involving api devika to mid inferior wall of left ventricle, consistent with infarct. No reversible component to sugge st ischemia. There is no segmental wall motion abnormality. Left ventricular ejection fraction nicci ures 63%. IMPRESSION: 1. 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 Artifacts decr ease sensitivity and specificity in the inferior wall. 2. Normal left ventricular ejection fraction measuring 63%. Reviewed, dictated and finalized at location A. IMPRESSION: 1. Small area of mild infarct involving apical to mid inferior wall of left juan tricle. Artifacts decrease sensitivity and specificity in the inferior wall. 2. Normal left ventricular ejection fraction measuring 63%.
--- NOTE | 2022-04-20 10:29 | EST_ITS ---
Patient Info Name: Sean Mendez Age: 76 years : 1945 Gender: Male Ht: 74 in Wt: 235 lbs BSA: 2.38 m2 HR: 55 bpm BP: 143 / 82 mmHg Heart Rhythm: Sinus Rhythm Exam Date: 04/20/2022 10:37 AM Exam Location: [facility] Stress Patient Status: Outpatient Admit Date: 04/20/2022 Staff Ordering Physician: Patrice Albrecht DO Attending Provider: Patrice Albrecht DO Exercise Technologist: Carol Barton CT Exercise Physician: Patrice Albrecht DO Exam Type: CA stress elbert w NM Study Info Indications Z01.810 - Encounter for preprocedural cardiovascular examination A regadenoson stress test was performed. Summary 1. 1. Negative lexiscan stress test for ischemic ST changes by ECG criteria. 2. 2. Baseline hypertension. 3. 3. Nuclear scan to follow and will be reported separately. Please correlate with it. 4. 4. Patient informed of the above results. Protocol: Lexiscan Stress ECG Details Stage: REST Duration (min): 13 min : 49 sec HR (bpm): 56 SBP (mmHg): 143 DBP (mmHg): 82 Stage: STAGE 1 Duration (min): 1 min : 0 sec HR (bpm): 59 SBP (mmHg): 160 DBP (mmHg): 84 Stage: RECOVERY Duration (min): 1 min : 0 sec HR (bpm): 66 SBP (mmHg): 160 DBP (mmHg): 84 Stage: RECOVERY Duration (min): 2 min : 0 sec HR (bpm): 64 SBP (mmHg): 160 DBP (mmHg): 84 Stage: RECOVERY Duration (min): 3 min : 0 sec HR (bpm): 65 SBP (mmHg): 161 DBP (mmHg): 89 Stage: RECOVERY Duration (min): 3 min : 11 sec HR (bpm): 64 SBP (mmHg): 161 DBP (mmHg): 89 Rest HR: 56 bpm Peak HR: 66 bpm Rest Sys BP: 143 mmHg Peak Sys BP: 161 mmHg Max Pred HR: 144 bpm % Max Pred HR: 46 % Target HR: 122 bpm Max RPP: 10,626 bpm*mmHg Termination Reason: Completed protocol Cardiac Symptoms: Shortness of breath, Nausea Total Time: 1 min : 0 sec Rest Bartholomew BP: 82 mmHg Peak Bartholomew BP: 89 mmHg Total Dose: 0.4 mg Resting ECG Sinus bradycardia, borderline ST-T wave in diffuse leads. Stress ECG No ST changes. Arrhythmias None. Report Signatures
== END 2022-04-20 09:18 | disposition home or self-care (01) ==
PROVIDERS: PCP Internal Medicine; Visit Provider Internal Medicine Cardiovascular Disease
DX: Z01.818 Encounter for other preprocedural examination (principal); I10 Essential (primary) hypertension; R94.31 Abnormal electrocardiogram [ECG] [EKG]
CPT/HCPCS: 78452; 93017; A9502; J2785

== ENCOUNTER 2023-04-20 07:58 | Outpatient (CLI) | payer MEDICARE, OTHER, SELFPAY ==
[2023-04-20 10:13] LABS: Basophils Absolute Auto 0.1 K/mm3 (0.0-0.1); Basophils Percent Auto 0.9 % (0.2-1.2); Eosinophils Absolute Auto 0.2 K/mm3 (0-0.3); Eosinophils Percent Auto 2.6 % (0-4.4); Hematocrit 44.7 % (42.0-52.0); Hemoglobin 14.9 g/dL (14.0-18.0); Immature Granulocyte Absolute 0.05 K/mm3 (0.00-0.031); Immature Granulocyte Percent A 0.6 % (0-0.5); Lymphocytes Absolute Auto 1.42 K/mm3 (0.9-3.2); Lymphocytes Percent Auto 17.3 % (18.3-44.2); Mean Corpuscular HGB Conc 33.3 g/dl (32-36); Mean Corpuscular Volume 92.9 fl (80-100); Mean Platelet Volume 11.1 fl (7.4-10.4); Monocytes Absolute Auto 0.8 K/mm3 (0.1-0.6); Monocytes Percent Auto 10.2 % (2.6-8.5); Neutrophils Absolute Auto 5.6 K/mm3 (1.3-6.7); Neutrophils Percent Auto 68.4 % (45.5-73.1); Platelet Count Result 212 k/mm3 (150-375); Red Blood Count 4.81 M/mm3 (4.6-6.20); Red Cell Distribution Width 12.7 % (11.5-14.5); White Blood Count 8.2 K/mm3 (4.5-10.0)
[2023-04-20 10:19] LABS: Appearance Urine Clear (Clear); Bacteria Urine None Seen /hpf; Bilirubin Urine Negative (Negative); Blood Urine Negative (Negative); Color Urine Yellow (Yellow); Glucose Urine UA 3+ mg/dL (Negative); Ketones Urine Negative (Negative); Leukocyte Esterase Ur Negative LEU/UL (Negative); Nitrate Urine Negative (Negative); Non Pathogenic Casts 0-2; Protein Urine 1+ mg/dL (Negative); RBC Urine 0-2 /hpf (0-2); Specific Grav Ur 1.027 (1.001-1.035); Squamous Epithelial Cell Urine None seen /hpf (Few); WBC Urine 0-5 /hpf
[2023-04-20 10:24] LABS: Albumin Level 4.3 g/dL (3.5-5.1); Anion Gap 9 mmol/L (8-16); Blood Urea Nitrogen 22 mg/dL (9-20); Calcium 8.8 mg/dL (8.4-10.2); Carbon Dioxide 28 mmol/L (22-30); Chloride 103 mmol/L (98-107); Estimated Glomerular Filt Rate 39; Glucose 141 mg/dL (65-110); Potassium 3.9 mmol/L (3.4-5.0); Sodium 140 mmol/L (137-145)
[2023-04-20 10:25] LABS: INR 1.1; Prothrombin Time 14.2 Seconds (11.1-14.7)
[2023-04-20 10:26] LABS: Partial Thromboplastin Time 30.7 SECONDS (22.3-36.8)
[2023-04-20 10:27] LABS: Add Urine Microscopic? YES
[2023-04-20 10:35] LABS: Urine Cotinine NEGATIVE
== END 2023-04-20 07:59 | disposition home or self-care (01) ==
LOC: ANHSURGERY 08:03
PROVIDERS: PCP Internal Medicine; Visit Provider Orthopaedic Surgery
DX: M17.11 Unilateral primary osteoarthritis, right knee (principal); Z01.818 Encounter for other preprocedural examination
CPT/HCPCS: 80048; 80307; 81001; 82040; 85025; 85610; 85730; 87081

== ENCOUNTER 2023-05-16 06:21 | Day surgery (SDC) | payer MEDICARE, OTHER, SELFPAY ==
[2023-04-20 08:23] VITALS: BMI 30.4
--- NOTE | 2023-04-20 08:25 | PC.NURSE ---
Addendum entered by Val Walker RN 04/20/23 09:02: REMINDER TO ATTEND TOTAL JOINT CLASS ON 05/02/23, PT RELAYS UNDERSTANDING. INSTR ON HIBICLENS SHOWER PER DR GRIMALDO, PT RELAYS UNDERSTANDING. Original Note: Report to the Outpatient Waiting Room, entrance under the green pavilion located off [facility], at time _6:00AM on date __05/16/23 . Planned Procedure Time: __7:30AM . Time changes happen often and if your time is changed the preop area will call you the afternoon before. - You and your visitor will be asked to self-screen and do not enter if you have any COVID symptoms. - A mask is optional within the hospital at this time. Patients may have clear liquids (water, carbonated beverages, clear teas, apple juice) until 3 hours prior to surgery with a maximum of 20 ounces. - No food from midnight until time of surgery Take the following medications with a SIP of water the morning of surgery: __AMIODARONE, AMLODIPINE, CARVEDILOL DO NOT STOP ANY OF YOUR OTHER PRESCRIPTION MEDICATIONS PRIOR TO SURGERY ?EXCEPT THE FOLLOWING Medications to discontinue per physician __HOLD ELIQUIS 2 DAYS PRE-OP PER DR GRIMALDO- LAST DOSE05/13/23. HOLD ALL VITAMINS/SUPPLEMENT 7 DAYS PRE-OP PER DR GRIMALDO- LAST DOSE 05/09/23__ Please no make-up, nail brazilian, hairspray, perfume, deodorant, or body powder the day of surgery. No jewelry (including any body piercings) or valuables the day of surgery, leave them at home. Please take a shower or bath the night before, or the morning of, surgery with an antibacterial soap. Wear comfortable, loose fitting clothing. Children are encouraged to wear pajamas. - Jewelry must be removed prior to entering the operating room. Rings and piercings that are not removed may be cut off. - The hospital will not accept responsibility for valuables. - Please leave all valuables, including medications, at home the day of surgery. If you are going home after surgery, a licensed motor bus driver must drive you home. - NO public transportation without another adult if you receive anesthesia. - We recommend that an adult stay with you for 24 hours following discharge. - We also recommend that you do not drive, make important decision, drink alcoholic beverages, or take any drugs that were not prescribed by your health care provider for at least 24 hours after your discharge time. Follow any additional instructions given to you from your surgeon. If you or anyone in your household have experienced Covid symptoms in the past week, please notify your surgeon or the nurse liaison at the phone number below for possible testing. Telephone instructions given to __PATIENT and asked if any additional questions and then verbalized understanding. Patient advised to call surgeon office or pre surgery nurse liaison [phone] if any additional questions.
[2023-04-20 09:00] VITALS: BP 135/63; PULSE 55; RESP 16; TEMP 36.7; O2SAT 98
[2023-05-16] VITALS (17 sets, daily range): BP systolic 113–170; BP diastolic 65–89; PULSE 54–79; RESP 11–18; TEMP 36.3–36.8; O2SAT 96–100
--- NOTE | ~2023-05-16 | XR_ITS ---
EXAMINATION: [id number]_[id number]_CR DATE: 05/16/2023 10:30 INDICATION: Postoperative evaluation following right total knee arthroplasty. TECHNIQUE: Anteroposterior and lateral views of the right knee were obtained. COMPARISON: None. FINDINGS: Right total knee arthroplasty without patellar resurfacing appears well seated and in near anatomic a lignment. No fractures identified. Expected postoperative subcutaneous and intra-articular gas. Anter ior skin pepe. Enthesophytes at the proximal distal patella. IMPRESSION: 1. Right total knee arthroplasty, negative for postoperative purposes. Reviewed, dictated and finalized at location B.
[2023-05-16] MEDS: LACTATED RINGERS 1,000 ML 30 ML IV CONT ×2 (06:55→10:15)
[2023-05-16] MEDS: TRANEXAMIC ACID 1,000MG/ISO100 1,000 MG/100 ML BAG 200 MG IVPB (07:00)
--- NOTE | 2023-05-16 07:04 | WPDANESEPPF ---
Anes - Initial Pre Proc Eval Procedure: Operation Date: 05/16/23 07:30 Proposed Procedures p Right Total Knee Arthroplasty - Amilcar Kurtz MD Date/Time: 05/16/23 07:04 Surgeon: Amilcar Kurtz MD Pre Op Diagnosis: right knee djd Patient Data Age: 77 Gender: M Height: 1.88 m Weight: 107.7 kg Last Vital Signs Temp 36.7 C 04/20/23 09:00 Pulse 55 L 04/20/23 09:00 Resp 16 04/20/23 09:00 BP 135/63 04/20/23 09:00 Pulse Ox 98 04/20/23 09:00 O2 Del Method Room Air 04/20/23 09:00 Allergies Allergy/AdvReac Type Severity Reaction Status Date / Time No Known Allergies Allergy Verified 05/16/23 06:52 Home Medications Medication Instructions Recorded Confirmed Type losartan 100 mg tablet 150 mg PO QAM 03/16/20 05/16/23 History carvedilol 12.5 mg tablet 12.5 mg PO Q12H 06/16/20 05/16/23 History fluticasone propionate 50 2 spray intranasal DAILY PRN 08/11/21 04/20/23 History mcg/actuation nasal Congestion spray,suspension (Flonase Allergy Relief) pen needle, diabetic 31 gauge x #200 ea 05/16/22 03/30/23 Rx 5/16 (BD Ultra-Fine Short Pen Needle) omega 2-vif-fvy-fish oil 250 1 cap PO BID 08/28/22 05/16/23 History mg-500 mg-1,000 mg capsule apixaban 5 mg tablet (Eliquis) 5 mg PO Q12HR #180 tabs 01/30/23 05/16/23 Rx dapagliflozin propanediol 5 mg 5 mg PO QAM 02/28/23 05/16/23 History tablet (Farxiga) blood-glucose meter (FreeStyle #1 ea 03/02/23 03/30/23 Rx Lite Meter kit) acetaminophen 500 mg tablet 500 mg PO Q6H PRN Pain 04/20/23 04/20/23 History (Acetaminophen Extra Strength) amlodipine 10 mg tablet 10 mg PO QAM 04/20/23 05/16/23 History glucosamine QDt-V5-Vocxxxmge 1 tablet PO BID 04/20/23 05/16/23 History tiffany 1,500 mg-400 unit-100 mg tablet (Glucosamine Daily Complex) insulin glargine 100 unit/mL (3 20 unit subcut BID 04/20/23 05/16/23 History mL) subcutaneous pen (Lantus Solostar U-100 Insulin) blood sugar diagnostic (FreeStyle #300 ea 05/04/23 Rx Lite Strips) amiodarone 200 mg tablet 100 mg PO QAM #90 tabs 05/07/23 05/16/23 Rx atorvastatin 40 mg tablet 40 mg PO DAILY #90 tabs 05/07/23 05/16/23 Rx metformin 500 mg tablet 500 mg PO BID #180 tabs 05/07/23 05/16/23 Rx Patient hx anesthesia problems: none Family hx anesthesia problems: none Results Review: All pre-operative results and documents have been reviewed as part of the pre-operative evaluation. [facility] Past Medical History Medical History Chronic anemia Chronic kidney disease, stage 3 Baseline creatinine ranges between 1.4 and 1.60. Diabetic retinopathy associated with controlled type 2 diabetes mellitus Gastroesophageal reflux disease Hyperlipidemia Hypertension Insulin dependent type 2 diabetes mellitus Hemoglobin A1c was 7.4% on 03/21/2021. 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 Right knee DJD Surgical History Surgical History History of cataract extraction History of colonoscopy with polypectomy History of inguinal hernia repair History of renal stent (~10/18/19) Left kidney: 10/18/19 History of right nephrectomy History of vasectomy Family History Family History Mother Family history of malignant neoplasm of brain Father Ruptured, aorta Other Arthritis Hypertension Lung disease Malignant neoplasm Social History Social History Social History: Surrogate decision maker: Aliyah Mendez, spouse. Code status: Full code. Caffeine-Coffee Smoking packs per day: 2 Smoking cigarettes per day: 40.0 Years smoked: 10 Smoking pack-years: 20.00 Smoking status: Former smoker Tobacco type: cigarettes Smoking end date: 05/12/90 Alcohol intake: current
[2023-05-16] MEDS: ACETAMINOPHEN 500 MG TABLET 1000 MG PO (07:07)
[2023-05-16 07:08] LABS: Glucose Point of Care 170 mg/dl (65-105)
--- NOTE | 2023-05-16 07:22 | WPDHPUPDATE1 ---
History and Physical Update Update Date/Time: 05/16/23 07:22 History and Physical has been reviewed, including an updated exam of the patient. There are NO changes in the patient's condition. Risks, benefits, and alternatives have been discussed and questions answered. Patient agrees to proceed with procedure.
[2023-05-16] MEDS: ceFAZolin 2 GM/D5W 50 ML 2 GM/50 ML BAG IVPB ×3 (07:42→22:08)
--- NOTE | 2023-05-16 07:42 | WPDANESPNB ---
Anes - Peripheral Nerve Block Date/Time: 05/16/23 07:42 I have discussed with the patient/family/POA the placement of a peripheral nerve block for post-operative pain management, including associated risks, benefits, complications, and side effects. Alternative methods of post-operative analgesia were detailed. Questions were solicited and answers provided to the satisfaction of the patient/family/POA. Time-Out: A pre-procedural Time-Out was completed immediately before starting the procedure and confirmed: Patient Identification, Site, Procedure, Patient Position and the Availability of Requisite Equipment. Clinical Indications: Acute post-operative pain management requested by the operative surgeon. Nerve Block Insertion Note Anes-nerve block: adductor canal right Patient position: supine Skin prep: chlorhexidine Needle: 22 gauge, stimulating, insulated echogenic needle. Needle length: 80 mm Technique: ultrasound Injectate: bupivacaine 0.5% with epi 5 mcg/ml (30cc - no epi) Observations: tolerated well Complications: none Procedure start time:: 732 Procedure end time:: 737
[2023-05-16] MEDS: GENTAMICIN BONE CEMENT REFOBACIN 1 EACH TOPICAL (08:52)
[2023-05-16] MEDS: TRANEXAMIC ACID 1,000 MG/10 ML AMPUL 1000 MG IV PUSH (09:25)
--- NOTE | 2023-05-16 10:06 | W.PM.PROC2 ---
Procedure Note - Detailed Date of Procedure 05/16/23 Pre-op Diagnosis right knee djd Post-op Diagnosis Same Procedure Performed R TKA Surgeon Amilcar Kurtz MD Anesthesia General Description of Procedure THE RIGHT KNEE WAS PREPPED AND DRAPED IN THE STERILE FASHION. THERE WAS A 10 DEGREE FLEXION CONTRACTURE. A MIDLINE SKIN INCISION WAS MADE. A MEDIAL PARAPATELLAR ARTHROTOMY WAS MADE. THE PATELLA WAS EVERTED. THERE WAS TRICOMPARTMENT DJD. THERE WAS MINIMAL PATELLA DJD. AN INTRAMEDULLARY BLANCA WAS PLACED IN THE FEMUR. A DISTAL FEMORAL CUT WAS MADE IN 5 DEGREES OF VALGUS REMOVING APPROXIMATELY 9 MM OF BONE FROM THE DISTAL FEMUR. THE FEMUR WAS SIZED TO 72.5. A 72.5 FEMORAL CUTTING BLOCK WAS PLACED IN 3 DEGREES OF EXTERNAL ROTATION AND IN ALIGNMENT WITH BETTY'S LINE AND THE TRANSEPICONDYLAR AXIS. ANTERIOR POSTERIOR AND CHAMFER CUTS WERE MADE. THE CUTS WERE EXCELLENT. NEXT AN INTRAMEDULLARY CUTTING GUIDE WAS PLACED IN THE TIBIA. A TRANS TIBIAL CUT WAS MADE ALONG THE LONG AXIS OF THE TIBIA. APPROXIMATELY 10 MM OF BONE WAS REMOVED FROM THE HIGH SIDE OF THE TIBIA. THE TIBIA WAS THEN PLANED TO A SMOOTH SURFACE. POSTERIOR FEMORAL OSTEOPHYTES WERE REMOVED FROM THE FEMORAL CONDYLES. A 85 TIBIAL TRIAL WAS PLACED IN ALIGNMENT WITH THE 1/3 MEDIAL ASPECT OF THE TIBIAL TUBERCLE. THEN A 72.5 FEMORAL TRIAL COMPONENT WAS PLACED. BOTH HAD EXCELLENT FITS. EVENTUALLY A 10 MM CR POLYETHYLENE TRIAL COMPONENT WAS PLACED. THE KNEE WAS TAKEN THROUGH A RANGE OF MOTION. THE KNEE CAME OUT TO FULL EXTENSION. THERE WAS NO ABNORMAL TILT TO THE PATELLA. THERE WAS GOOD A/P AND VARUS/VALGUS STABILITY. THERE WAS NO EXCESSIVE ROLL BACK WITH FLEXION. THE TRIAL COMPONENTS WERE REMOVED. THEN A 72.5 FEMORAL COMPONENT AND 85 TIBIAL COMPONENT WITH A 10 CR POLYETHYLENE COMPONENT WERE CEMENTED INTO PLACE. ONCE THE CEMENT WAS HARD THE KNEE WAS TAKEN THROUGH A ROM AGAIN AND FOUND TO BE STABLE WITH NO PATELLA TILT NO EXCESSIVE ROLL BACK WITH FLEXION AND GOOD STABILITY WITH COMPLETE AND FULL EXTENSION. THE KNEE WAS IRRIGATED WITH STERILE BETADINE AND WATER FOR ABOUT 3 MINUTES. THE BLEEDERS WERE CAUTERIZED. THE ARTHROTOMY WAS REPAIRED WITH NUMBER 1 VICRYL. THE SUB CUTANEOUS LAYER WITH 2-0 VICRYL AND THE SKIN WITH SHANNEN. THE WOUND WAS WASHED AND A STERILE DRESSING WAS APPLIED. PATIENT WAS EXTUBATED. Estimated Blood Loss -150.0 Pathology None sent Complications No immediate complications Condition Stable Disposition PACU
[2023-05-16 10:21] LABS: Glucose Point of Care 175 mg/dl (65-105)
[2023-05-16] MEDS: fentaNYL CITRATE INJ (*CRX) 100 MCG/2 ML VIAL 25 MCG IV PUSH (10:34)
--- NOTE | 2023-05-16 11:42 | SUR.PHASEI ---
fentanyl 25 mcg given at 1135
[2023-05-16 12:19] LABS: Estimated CRCL calculation 38 ml/min; Estimated Glomerular Filt Rate 39
[2023-05-16] MEDS: SODIUM CHLORIDE 0.9% IV 1,000 ML 125 ML IV CONT (12:21)
[2023-05-16] MEDS: oxyCODONE/ACETAMINOPHEN (*CRX) 5-325 MG TABLET 1 TABLET PO ×2 (12:22→18:05)
[2023-05-16] MEDS: carvediloL 12.5 MG TABLET PO ×2 (12:54→20:32)
[2023-05-16] MEDS: WATER FOR IRRIGATION, STERILE 1,000 ML BOTTLE 1000 ML (14:37)
--- NOTE | 2023-05-16 14:58 | PCPTNOTE ---
On 05/16/23, the student, [Barbara Basurto], provided care and completed [facility] documentation on this patient. I have reviewed the student's documentation and agree with the findings.
[2023-05-16] MEDS: SENNA/DOCUSATE SODIUM TABLET 2 TAB PO (18:04)
[2023-05-16] MEDS: metFORMIN HCL 500 MG TABLET PO (18:04)
[2023-05-16] MEDS: INSULIN GLARGINE (*BKC) 100 UNITS/ML 20 UNITS SUB-Q (18:08)
[2023-05-16 18:22] LABS: Glucose Point of Care 270 mg/dl (65-105)
[2023-05-16] MEDS: APIXABAN 5 MG TABLET PO (20:33)
[2023-05-16] MEDS: FAMOTIDINE 20 MG TABLET PO (20:33)
[2023-05-17 01:19] VITALS: BP 149/61; PULSE 58; RESP 18; TEMP 36.6; O2SAT 97
[2023-05-17 02:10] VITALS: PULSE 60; O2SAT 96
[2023-05-17 05:02] VITALS: BP 141/64; PULSE 60; RESP 18; TEMP 36.9; O2SAT 97
[2023-05-17 05:06] LABS: Basophils Absolute Auto 0.1 K/mm3 (0.0-0.1); Basophils Percent Auto 0.4 % (0.2-1.2); Eosinophils Percent Auto 0.1 % (0-4.4); Hematocrit 37.1 % (42.0-52.0); Hemoglobin 12.3 g/dL (14.0-18.0); Immature Granulocyte Absolute 0.07 K/mm3 (0.00-0.031); Immature Granulocyte Percent A 0.5 % (0-0.5); Lymphocytes Absolute Auto 1.14 K/mm3 (0.9-3.2); Lymphocytes Percent Auto 8.7 % (18.3-44.2); Mean Corpuscular HGB Conc 33.2 g/dl (32-36); Mean Corpuscular Hemoglobin 30.8 pg (26-34); Mean Corpuscular Volume 92.8 fl (80-100); Mean Platelet Volume 10.8 fl (7.4-10.4); Monocytes Absolute Auto 1.4 K/mm3 (0.1-0.6); Monocytes Percent Auto 10.6 % (2.6-8.5); Neutrophils Absolute Auto 10.4 K/mm3 (1.3-6.7); Neutrophils Percent Auto 79.7 % (45.5-73.1); Platelet Count Result 176 k/mm3 (150-375); Red Cell Distribution Width 12.6 % (11.5-14.5)
[2023-05-17 05:16] LABS: Anion Gap 8 mmol/L (8-16); Blood Urea Nitrogen 29 mg/dL (9-20); Calcium 7.6 mg/dL (8.4-10.2); Carbon Dioxide 23 mmol/L (22-30); Chloride 106 mmol/L (98-107); Estimated CRCL calculation 31 ml/min; Estimated Glomerular Filt Rate 31; Glucose 168 mg/dL (65-110); Potassium 3.6 mmol/L (3.4-5.0); Sodium 137 mmol/L (137-145)
[2023-05-17] MEDS: ceFAZolin 2 GM/D5W 50 ML 2 GM/50 ML BAG IVPB (06:00)
--- NOTE | 2023-05-17 07:42 | WPDANESPN ---
Anes - Prog Note Post-Op Date/Time: 05/17/23 07:42 Cardiovascular status: normal Respiratory status: normal Airway patency: baseline Mental status: baseline Post-Op hydration status: normal Vital Signs: Last Vital Signs Temp 36.9 C 05/17/23 05:02 Pulse 60 05/17/23 05:02 Resp 18 05/17/23 05:02 BP 141/64 H 05/17/23 05:02 Pulse Ox 97 05/17/23 05:02 O2 Del Method CPAP 05/17/23 02:10 O2 Flow Rate 6 05/16/23 10:14 Pain Score (VAS): 2 I/O: Intake & Output 05/16/23 05/16/23 05/17/23 15:59 23:59 07:59 Intake Total 440 840 600 Output Total 1525 300 Balance 440 -685 300 Laboratory Tests 05/17/23 04:35 05/17/23 04:35 05/16/23 05/16/23 05/16/23 07:04 10:19 12:01 WBC RBC Hgb Hct MCV MCH MCHC RDW Plt Count MPV Immature Gran % (Auto) Neut % (Auto) Lymph % (Auto) [place] % (Auto) Eos % (Auto) Baso % (Auto) Lymph # (Auto) [place] # (Auto) Eos # (Auto) Baso # (Auto) Abs Immat Gran (auto) Absolute Neuts (auto) Absolute Nucleated RBC Nucleated RBC % Sodium Potassium Chloride Carbon Dioxide Anion Gap BUN Creatinine 1.70 H Estim Creat Clear Calc 38 Estimated GFR 39 L Glucose POC Capillary Glucose 175 H Calcium Blood Type A Positive Antibody Screen Negative 05/16/23 05/17/23 18:07 04:35 WBC 13.0 H RBC 4.00 L Hgb 12.3 L Hct 37.1 L MCV 92.8 MCH 30.8 MCHC 33.2 RDW 12.6 Plt Count 176 MPV 10.8 H Immature Gran % (Auto) 0.5 Neut % (Auto) 79.7 H Lymph % (Auto) 8.7 L [place] % (Auto) 10.6 H Eos % (Auto) 0.1 Baso % (Auto) 0.4 Lymph # (Auto) 1.14 [place] # (Auto) 1.4 H Eos # (Auto) 0.0 Baso # (Auto) 0.1 Abs Immat Gran (auto) 0.07 H Absolute Neuts (auto) 10.4 H Absolute Nucleated RBC 0.0 Nucleated RBC % 0.0 Sodium 137 Potassium 3.6 Chloride 106 Carbon Dioxide 23 Anion Gap 8 BUN 29 H Creatinine 2.10 H Estim Creat Clear Calc 31 Estimated GFR 31 L Glucose 168 H POC Capillary Glucose 270 H Calcium 7.6 L Blood Type Antibody Screen Post-procedural complaints: none Patient Feedback: Patient satisfied with anesthetic care.
[2023-05-17 07:58] VITALS: BP 141/73; PULSE 61; RESP 16; TEMP 36.6; O2SAT 98
[2023-05-17] MEDS: INSULIN GLARGINE (*BKC) 100 UNITS/ML 20 UNITS SUB-Q (09:24)
[2023-05-17 09:25] VITALS: PULSE 62
[2023-05-17] MEDS: AMIODARONE HCL 100 MG TABLET PO (09:25)
[2023-05-17] MEDS: EMPAGLIFLOZIN 10 MG TABLET PO (09:25)
[2023-05-17] MEDS: oxyCODONE/ACETAMINOPHEN (*CRX) 5-325 MG TABLET 1 TABLET PO (09:25)
[2023-05-17] MEDS: LOSARTAN POTASSIUM 50 MG TABLET 150 MG PO (09:25)
[2023-05-17] MEDS: amLODIPine BESYLATE 5 MG TABLET 10 MG PO (09:25)
[2023-05-17] MEDS: polyethylene glycoL 3350 17 GM POWD.PACK PO (09:25)
[2023-05-17] MEDS: SENNA/DOCUSATE SODIUM TABLET 2 TAB PO (09:25)
[2023-05-17] MEDS: ATORVASTATIN 40 MG TABLET PO (09:25)
[2023-05-17 09:26] VITALS: PULSE 62
[2023-05-17] MEDS: carvediloL 12.5 MG TABLET PO (09:26)
[2023-05-17] MEDS: FAMOTIDINE 20 MG TABLET PO (09:26)
[2023-05-17] MEDS: APIXABAN 5 MG TABLET PO (09:26)
[2023-05-17] MEDS: metFORMIN HCL 500 MG TABLET PO (09:26)
[2023-05-17 09:49] LABS: Glucose Point of Care 211 mg/dl (65-105)
--- NOTE | 2023-05-17 12:49 | PM.PNORT ---
Subjective Subjective Date/Time Seen: 05/17/23 12:49 Objective Data Vital Signs Vital Signs: Vital Signs - 24 hr 05/16/23 12:54 05/16/23 13:10 05/16/23 13:22 Temperature Pulse Rate 66 Respiratory Rate Blood Pressure Pulse Oximetry 96 Oxygen Delivery Room Air Room Air 05/16/23 14:21 05/16/23 17:58 05/16/23 18:44 Temperature 97.4 F L 97.7 F Pulse Rate 79 70 Respiratory Rate 16 16 Blood Pressure 151/71 H 164/65 H Pulse Oximetry 98 98 Oxygen Delivery Room Air 05/16/23 20:32 05/16/23 21:04 05/16/23 20:20 Temperature 98.3 F Pulse Rate 67 67 Respiratory Rate 17 Blood Pressure 157/69 H Pulse Oximetry 96 Oxygen Delivery Room Air 05/17/23 01:19 05/16/23 21:45 05/17/23 02:10 Temperature 97.9 F Pulse Rate 58 L 66 60 Respiratory Rate 18 Blood Pressure 149/61 H Pulse Oximetry 97 97 96 Oxygen Delivery CPAP CPAP 05/17/23 05:02 05/17/23 07:58 05/17/23 09:25 Temperature 98.4 F 97.9 F Pulse Rate 60 61 62 Respiratory Rate 18 16 Blood Pressure 141/64 H 141/73 H Pulse Oximetry 97 98 Oxygen Delivery 05/17/23 09:26 05/17/23 08:00 Temperature Pulse Rate 62 Respiratory Rate Blood Pressure Pulse Oximetry Oxygen Delivery Room Air Intake/Output Intake/Output: Intake & Output 05/14/23 05/15/23 05/16/23 05/17/23 23:59 23:59 23:59 23:59 Intake Total 1280 840 Output Total 1525 300 Balance -245 540 Meds/Results Medications: Active Medications Generic Name Dose Route Start Last Admin Trade Name Freq PRN Reason Stop Dose Admin Acetaminophen 1,000 mg 05/16/23 11:39 Acetaminophen 500 Mg Tablet PO Q6H PRN Pain Rated 1-3 Amiodarone HCl 100 mg 05/17/23 09:00 05/17/23 09:25 Amiodarone Hcl 100 Mg Tablet PO 100 mg QAM HUBER Administration Amlodipine Besylate 10 mg 05/17/23 09:00 05/17/23 09:25 Amlodipine Besylate 5 Mg Tablet PO 10 mg QAM HUBER Administration Apixaban 5 mg 05/16/23 21:00 05/17/23 09:26 Apixaban 5 Mg Tablet PO 5 mg Q12HR HUBER Administration Atorvastatin Calcium 40 mg 05/17/23 09:00 05/17/23 09:25 Atorvastatin 40 Mg Tablet PO 40 mg DAILY HUBER Administration Carvedilol 12.5 mg 05/16/23 11:39 05/17/23 09:26 Carvedilol 12.5 Mg Tablet PO 12.5 mg Q12HR HUBER Administration Celecoxib 200 mg 05/16/23 17:00 05/17/23 09:16 Celecoxib 200 Mg Capsule PO Not Given BIDWM HUBER Diazepam 5 mg 05/16/23 11:39 Diazepam (*Crx) 5 Mg Tablet PO Q8H PRN Spasms Diphenhydramine HCl 25 mg 05/16/23 11:39 Diphenhydramine Hcl Inj 50 Mg/Ml Vial IV PUSH Q6H PRN Itching Empagliflozin 10 mg 05/17/23 09:00 05/17/23 09:25 Empagliflozin 10 Mg Tablet PO 06/16/23 08:59 10 mg QAM HUBER Administration Famotidine 20 mg 05/16/23 21:00 05/17/23 09:26 Famotidine 20 Mg Tablet PO 20 mg Q12HR HUBER Administration Insulin Glargine 20 units 05/16/23 17:00 05/17/23 09:24 Insulin Glargine (*Bkc) 100 Units/Ml SUB-Q 20 units BID HUBER Administration Losartan Potassium 150 mg 05/17/23 09:00 05/17/23 09:25 Losartan Potassium 50 Mg Tablet PO 150 mg QAM HUBER Administration Metformin HCl 500 mg 05/16/23 17:00 05/17/23 09:26 Metformin Hcl 500 Mg Tablet PO 500 mg BIDWM HUBER Administration Naloxone HCl 0.1 mg 05/16/23 11:39 Naloxone Hcl 0.4 Mg/Ml Vial IV PUSH Q2M PRN Opiate Reversal Ondansetron HCl 4 mg 05/16/23 11:39 Ondansetron Inj 4 Mg/2 Ml Vial IV PUSH Q4H PRN Nausea And Vomiting Oxycodone/Acetaminophen 1 tablet 05/16/23 11:39 05/17/23 09:25 Oxycodone/Acetaminophen (*Crx) 5-325 Mg Tablet PO 1 tablet Q4H PRN Administration Pain Rated 4-6 Oxycodone/Acetaminophen 2 tablet 05/16/23 11:39 Oxycodone/Acetaminophen (*Crx) 5-325 Mg Tablet PO Q6H PRN Pain Rated 7-10 Polyethylene Glycol 17 gm 05/17/23 09:00 05/17/23 09:25 Polyethylene Glycol 3350 17 Gm
--- NOTE | 2023-05-17 12:54 | PM.PNORT ---
Progress Note: A&P Assessment and Plan (1) Right knee DJD: Qualifiers: Osteoarthritis type: primary Qualified Code(s): M17.11 - Unilateral primary osteoarthritis, right knee Code(s): M17.11 - Unilateral primary osteoarthritis, right knee Status: Acute Assessment and Plan: POST DAY 1 DOING WELL WITH GOOD PT PROGRESS. OK TO DC HOME F/U IN 3 WEEKS Subjective Subjective Date/Time Seen: 05/17/23 12:54 Post Op day: 1 Interval history: pod 1 doing well. no calf pain Exam Extrem: Other: VSS AFEBRILE DRESSING DRY NV INTACT NEG HOMANS SIGN CALF SOFT NON TENDER Objective Data Vital Signs Vital Signs: Vital Signs - 24 hr 05/16/23 13:10 05/16/23 13:22 05/16/23 14:21 Temperature 36.3 C L Pulse Rate 79 Respiratory Rate 16 Blood Pressure 151/71 H Pulse Oximetry 96 98 Oxygen Delivery Room Air Room Air 05/16/23 17:58 05/16/23 18:44 05/16/23 20:32 Temperature 36.5 C Pulse Rate 70 67 Respiratory Rate 16 Blood Pressure 164/65 H Pulse Oximetry 98 Oxygen Delivery Room Air 05/16/23 21:04 05/16/23 20:20 05/17/23 01:19 Temperature 36.8 C 36.6 C Pulse Rate 67 58 L Respiratory Rate 17 18 Blood Pressure 157/69 H 149/61 H Pulse Oximetry 96 97 Oxygen Delivery Room Air 05/16/23 21:45 05/17/23 02:10 05/17/23 05:02 Temperature 36.9 C Pulse Rate 66 60 60 Respiratory Rate 18 Blood Pressure 141/64 H Pulse Oximetry 97 96 97 Oxygen Delivery CPAP CPAP 05/17/23 07:58 05/17/23 09:25 05/17/23 09:26 Temperature 36.6 C Pulse Rate 61 62 62 Respiratory Rate 16 Blood Pressure 141/73 H Pulse Oximetry 98 Oxygen Delivery 05/17/23 08:00 Temperature Pulse Rate Respiratory Rate Blood Pressure Pulse Oximetry Oxygen Delivery Room Air Intake/Output Intake/Output: Intake & Output 05/14/23 05/15/23 05/16/23 05/17/23 23:59 23:59 23:59 23:59 Intake Total 1280 840 Output Total 1525 300 Balance -245 540 Meds/Results Medications: Active Medications Generic Name Dose Route Start Last Admin Trade Name Misbah PRN Reason Stop Dose Admin Acetaminophen 1,000 mg 05/16/23 11:39 Acetaminophen 500 Mg Tablet PO Q6H PRN Pain Rated 1-3 Amiodarone HCl 100 mg 05/17/23 09:00 05/17/23 09:25 Amiodarone Hcl 100 Mg Tablet PO 100 mg QAM HUBER Administration Amlodipine Besylate 10 mg 05/17/23 09:00 05/17/23 09:25 Amlodipine Besylate 5 Mg Tablet PO 10 mg QAM HUBER Administration Apixaban 5 mg 05/16/23 21:00 05/17/23 09:26 Apixaban 5 Mg Tablet PO 5 mg Q12HR HUBER Administration Atorvastatin Calcium 40 mg 05/17/23 09:00 05/17/23 09:25 Atorvastatin 40 Mg Tablet PO 40 mg DAILY HUBER Administration Carvedilol 12.5 mg 05/16/23 11:39 05/17/23 09:26 Carvedilol 12.5 Mg Tablet PO 12.5 mg Q12HR HUBER Administration Celecoxib 200 mg 05/16/23 17:00 05/17/23 09:16 Celecoxib 200 Mg Capsule PO Not Given BIDWM HUBER Diazepam 5 mg 05/16/23 11:39 Diazepam (*Crx) 5 Mg Tablet PO Q8H PRN Spasms Diphenhydramine HCl 25 mg 05/16/23 11:39 Diphenhydramine Hcl Inj 50 Mg/Ml Vial IV PUSH Q6H PRN Itching Empagliflozin 10 mg 05/17/23 09:00 05/17/23 09:25 Empagliflozin 10 Mg Tablet PO 06/16/23 08:59 10 mg QAM HUBER Administration Famotidine 20 mg 05/16/23 21:00 05/17/23 09:26 Famotidine 20 Mg Tablet PO 20 mg Q12HR HUBER Administration Insulin Glargine 20 units 05/16/23 17:00 05/17/23 09:24 Insulin Glargine (*Bkc) 100 Units/Ml SUB-Q 20 units BID HUBER Administration Losartan Potassium 150 mg 05/17/23 09:00 05/17/23 09:25 Losartan Potassium 50 Mg Tablet PO 150 mg QAM HUBER Administration Metformin HCl 500 mg 05/16/23 17:00 05/17/23 09:26 Metformin Hcl 500 Mg Tablet PO 500 mg BIDWM HUBER Administration Naloxone HCl 0.1 mg 05/16/23 11:39 Naloxone Hcl 0.4 Mg/Ml Vial IV PUSH Q2M PRN Opiate Reve
--- NOTE | 2023-05-17 12:57 | PM.DS ---
DS: Admitting Diagnosis Discharge Date 05/17/23 Admitting Diagnosis RIGHT KNEE DJD DS: Discharge Diagnosis Discharge Diagnosis (1) Right knee DJD: Qualifiers: Osteoarthritis type: primary Qualified Code(s): M17.11 - Unilateral primary osteoarthritis, right knee Code(s): M17.11 - Unilateral primary osteoarthritis, right knee Status: Acute DS: Summary Hospital Course Reason for hospitalization: RIGHT TKA Hospital Course: PATIENT WAS ADMITTED S/P TOTAL KNEE ARTHROPLASTY FOR POSTOPERATIVE MEDICAL MANAGEMENT, PAIN CONTROL AND MOBILIZATION WITH PHYSICAL AND OCCUPATIONAL THERAPY. THE PATIENT PROGRESSED WELL WITH PT/OT. LABS AND VITALS REMAINED STABLE AND PAIN WELL CONTROLLED. THE PATIENT HAS BEEN CLEARED TO BE DISCHARGED HOME. FOLLOW UP APPOINTMENT SCHEDULED. DISCHARGE INSTRUCTIONS DISCUSSED AT LENGTH WITH THE PATIENT. MEDICATIONS REVIEWED. Status at Discharge Cognitive/behavioral status at discharge: STABLE Functional status at discharge: uses cane/walker Time Spent with Patient Time attestation: Total time spent providing and/or coordinating discharge services: DS: Data Data Completed and Pending Labs on day of discharge: Labs from last 24 hours 05/17/23 05/17/23 05/16/23 09:23 04:35 18:07 WBC 13.0 H RBC 4.00 L Hgb 12.3 L Hct 37.1 L MCV 92.8 MCH 30.8 MCHC 33.2 RDW 12.6 Plt Count 176 MPV 10.8 H Immature Gran % (Auto) 0.5 Neut % (Auto) 79.7 H Lymph % (Auto) 8.7 L [place] % (Auto) 10.6 H Eos % (Auto) 0.1 Baso % (Auto) 0.4 Lymph # (Auto) 1.14 [place] # (Auto) 1.4 H Eos # (Auto) 0.0 Baso # (Auto) 0.1 Abs Immat Gran (auto) 0.07 H Absolute Neuts (auto) 10.4 H Absolute Nucleated RBC 0.0 Nucleated RBC % 0.0 Sodium 137 Potassium 3.6 Chloride 106 Carbon Dioxide 23 Anion Gap 8 BUN 29 H Creatinine 2.10 H Estim Creat Clear Calc 31 Estimated GFR 31 L Glucose 168 H POC Capillary Glucose 211 H 270 H Calcium 7.6 L Procedures/Treatments: R TKA Discharge Plan Discharge Patient Disposition: Home, Self-Care Patient Instructions: Apixaban (By mouth) Follow-up/Referrals: Amilcar Kurtz MD [Physician] - 3 Weeks Discharge Medications: New oxycodone-acetaminophen [Percocet] 5-325 mg tablet 1 tablet PO Q6H PRN (Reason: pain) Qty: 30 0RF Continued losartan 100 mg tablet 150 mg PO QAM Rx Instructions: Prescribed by Nephrology. Farxiga 5 mg tablet 5 mg PO QAM carvedilol 12.5 mg tablet 12.5 mg PO Q12H Rx Instructions: PRESCRIBED BY DR. PAYAN omega 7-bga-egu-fish oil 250-500-1,000 mg capsule 1 cap PO BID amlodipine 10 mg tablet 10 mg PO QAM insulin glargine [Lantus Solostar U-100 Insulin] 100 unit/mL (3 mL) insulin pen 20 unit subcut BID Rx Instructions: PT ALTERS DOSE WITH BLOOD SUGAR READINGS acetaminophen [Acetaminophen Extra Strength] 500 mg Tablet 500 mg PO Q6H PRN (Reason: Pain) [id number] serr [Glucosamine Daily Complex] 1,500-400-100 mg-unit-mg Tablet 1 tablet PO BID Rx Instructions: give after food/meal fluticasone propionate [Flonase Allergy Relief] 50 mcg/actuation spray,suspension 2 spray intranasal DAILY PRN (Reason: Congestion) Rx Instructions: administer into each nostril Eliquis 5 mg tablet 5 mg PO Q12HR Qty: 180 2RF metformin 500 mg tablet 500 mg PO BID Qty: 180 1RF amiodarone 200 mg tablet 100 mg PO QAM Qty: 90 2RF atorvastatin 40 mg tablet 40 mg PO DAILY Qty: 90 1RF
== END 2023-05-17 14:10 | disposition home health service (06) ==
LOC: ANHSURGERY 07:01 → ANH2MED 11:44
PROVIDERS: PCP Internal Medicine; Visit Provider Orthopaedic Surgery
PROC: (CPT 27447; principal; 2023-05-16 07:30)
DX: M17.11 Unilateral primary osteoarthritis, right knee (principal); G89.18 Other acute postprocedural pain; I12.9 Hypertensive chronic kidney disease with stage 1 through stage 4 chronic kidney disease, or unspecified chronic kidney disease; E11.22 Type 2 diabetes mellitus with diabetic chronic kidney disease; N18.30 Chronic kidney disease, stage 3 unspecified; E11.319 Type 2 diabetes mellitus with unspecified diabetic retinopathy without macular edema; E78.5 Hyperlipidemia, unspecified; G47.33 Obstructive sleep apnea (adult) (pediatric); D64.9 Anemia, unspecified; K21.9 Gastro-esophageal reflux disease without esophagitis; Z85.528 Personal history of other malignant neoplasm of kidney; Z90.5 Acquired absence of kidney; Z87.891 Personal history of nicotine dependence; E66.9 Obesity, unspecified; Z68.30 Body mass index [BMI] 30.0-30.9, adult; Z79.01 Long term (current) use of anticoagulants; Z79.84 Long term (current) use of oral hypoglycemic drugs; Z79.4 Long term (current) use of insulin
CPT/HCPCS: 27447; 64447; 36415; 73560; 80048; 82565; 82948; 85025; 86850; 86900; 86901; 97110; 97116; 97161; 97165; 97530; 97535; A9270; C1713; C1776; J0171; J0690; J1100; J1170; J1815; J1885; J2250; J2270; J2405; J2704; J2795; J3010; J7030; J7120

== ENCOUNTER 2023-07-19 13:15 | Outpatient (RCR) | payer MEDICARE, OTHER, SELFPAY ==
--- NOTE | 2023-06-18 12:40 | PTOPEVAL1 ---
Assessment and note entered by Fred Farrell, PT Evaluation Information Assessment Status Evaluation Diagnosis Right Total Knee Onset 05/16/23 Subjective Information Reports that he has had pain and swelling off and on since surgery. Overall feels he is progress and has been working on HEP from home health with no concerns. Feels that his legs are different lengths right now and he is getting some sciatic pain on top of everything. Reported Pain Level Pain Score 3: Self Report Assessment PT Clinical Summary Patient presents with deficits in knee mobility, strength, and gait pattern. Hindrance also related to edema in knee as reflected by girth measures. He will benefit from skilled therapy to address objective deficits and improve overall knee function for gait and functional performance. Plan of Care Interventions Gait Training,Hot Pack/Cold Pack,Manual Therapy, Neuro Re-education,Therapeutic Activities, Therapeutic Exercise PT Services Indicated Yes Treatment Frequency and 2x/week for 8 weeks Duration These treatments will address the objective and functional deficits as defined above. The patient will be advanced safely and appropriately in order for the patient to progress towards his/her prior level of function. Additional exercises will be introduced and as well as a comprehensive home exercise program upon discharge, if needed, ?to ensure carryover of functional gains achieved in the clinic. This treatment plan has been reviewed and agreement upon by the patient.
--- NOTE | 2023-06-18 12:41 | OPREHPOC ---
Outpatient Therapy Plan of Care This is a Multidisciplinary Plan of Care that may contain components documented by all disciplines (PT, OT, and ST.) PT Problem 1 PT Problem #1 Knowledge Deficit PT Goal 1 Goal Independent with HEP Target Visit 8 PT Problem 2 PT Problem #2 Pain PT Goal 1 Goal Report no pain with sit to stand activity Target Visit 16 PT Problem 3 PT Problem #3 Impaired Range of Motion PT Goal 1 Goal Demonstrate 0 degrees of R knee extension for terminal stance of gait Target Visit 16 PT Goal 2 Goal Demonstrate 125 degrees of R knee flexion for functional activity Target Visit 16 PT Problem 4 PT Problem #4 Edema PT Goal 1 Goal Demonstrate 2+ cm reduction in joint line girth indicating soft tissue healing Target Visit 16 PT Problem 5 PT Problem #5 Impaired Gait PT Goal 1 Goal Ambulate with even stride length bilaterally Target Visit 16
--- NOTE | 2023-07-19 14:18 | PTOPDC ---
Assessment and note entered by Raf Valdivia Discharge Information Assessment Status Discharge Diagnosis right total knee Onset 05/16/23 Subjective Information Pt. reports that he continues to notice swelling in the right knee. He states that despite the pain and swelling he is pleased with his progress. He states that he is doing things such as ice and elevation at home to address the swelling. he reports that he does not feel limited and pain is minimal. He reports that he is driving and getting into the community without difficulty. he reports that he is ready for discharge. Reported Pain Level Pain Score 2: Self Report Assessment PT Clinical Summary Pt. continues to demonstrate deficits with edema, gait mechanics and ROM. Despite these deficits, he does not appear to be limited functionally. At this time he is encouraged to continue with his HEP and will be discharged from our care. Plan of Care PT Services Indicated Yes
== END 2023-07-20 12:00 | disposition home or self-care (01) ==
LOC: ANHPT 13:15
PROVIDERS: PCP Internal Medicine; Visit Provider Orthopaedic Surgery
DX: Z47.1 Aftercare following joint replacement surgery (principal); Z96.651 Presence of right artificial knee joint
CPT/HCPCS: 97016; 97110; 97112; 97140; 97161; 97530

== ENCOUNTER 2025-02-23 07:31 | Outpatient (CLI) | payer MEDICARE, OTHER, SELFPAY ==
--- NOTE | ~2025-02-23 | NM_ITS ---
EXAMINATION: NM elbert stress w perfusion DATE: 02/23/2025 10:12 INDICATION: Chest pain TECHNIQUE: Rest images were obtained following intravenous administration of 11.17 mCi Tc99m tetrofos min (Myoview). The patient was infused intravenously with Lexiscan (Regadenoson). Then, 34.4 mCi Tc99 m tetrofosmin (Myoview) was administered intravenously, and stress images were obtained in the supine position. Repeat post stress images were obtained prone position.. Data was reconstructed into short axis and horizontal and vertical long axis SPECT images. Gated SPECT images were also obtained. COMPARISON: None. FINDINGS: There is a severe nonreversible perfusion defect on the post stress images obtained in the prone position involving the mid and basilar inferior segments. The artifactual decreased activity at the inferoapical, mid anteroseptal and mid inferolateral segments on the rest and post stress imagin g obtained in the supine position normalizes on the prone post stress images. There is no reversible ischemia when comparing the post stress images seen in the prone position with the rest images. There is normal left ventricular chamber size, wall motion and ejection fraction. Left ventricular ejecti on fraction measures 69%. IMPRESSION: 1. 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 2. Left ventricular ejection fraction measuring 69%. Reviewed, dictated and finalized at location A. IMPRESSION: 1. Moderate-sized severe nonreversible perfusion defect consistent with infarct involving the mid inferior and basilar inferior segments. 2. Left ventricular ejection fraction measuring 69%.
--- OUTSIDE RECORDS SUMMARY | 2025-02-23 07:34 | XMS_ITS ---
Author Organization [facility] Address [address] [place] [address] Care Team Providers Care Account Assistant Name Role Phone Antolin Sharpe DO Primary Care Provider [phone]- [phone] Active Problems Problem Noted Date Diagnosed Date Urinary tract stones 11/13/2019 Overview (11/13/2019): Added automatically from request for surgery [id number] Bladder tumor 10/31/2019 Overview (10/31/2019): Added automatically from request for surgery [id number] Renal cell carcinoma of right kidney 04/30/2018 Essential hypertension 04/24/2018 Type 2 diabetes mellitus 04/24/2018 Anemia in stage 3 chronic kidney disease 018 CKD (chronic kidney disease) stage 3, GFR 30-59 ml/min 01/01/2018 Status post nephrectomy 08/30/2017 Current Treatment and Therapy Plans No current plan information found. Past Treatment and Therapy Plans No past plan information found. Lifetime Dose Tracking * Chemical Lifetime Dose Automatic Entry Manual Entr y Fluoro Time 1.2 minutes 1.2 minutes 0 minutes Air kerma at the reference point (Ka,r) 18.16 mGy 1 8.16 mGy 0 mGy DLP 965 mGycm 965 mGycm 0 mGycm
--- OUTSIDE RECORDS SUMMARY | 2025-02-23 07:34 | XMS_ITS | Referral Summary ---
Author Organization [facility] Address [address] [place] [address] Care Team Providers Care Brass Buffer Name Role Phone Antolin Sharpe DO Primary Care Provider [phone] Encounters Date Type Department Care Team Description 02/12/2025 Results Follow-Up [facility] Nephrology [facility] [facility] 5th [place] [address] Beatriz Soria 02/12/2025 Orders Only [facility] Nephrology [address] [facility] 5th [place] [address] Elder Vila MD Hypokalemia (Primary Dx); Stage 3b chronic kidney disease (HCC) 01/28/2025 Telephone [facility] Nephrology [facility] [address] [place] [address] Beatriz Soria 01/28/2025 1:00 PM CDT Office Visit [facility] Nephrology [address] [facility] 5th [place] [address] Stage 3b chronic kidney disease (HCC) (Primary Dx); Stage 3 chronic kidney disease, unspecified whether stage 3a or 3b CKD (HCC); History of right radical nephrectomy; Essential hypertension; Nephrolithiasis; Renal osteodystrophy 01/13/2025 Orders Only [facility] Nephrology [address] [facility] 5th [place] [address] [place] [address] Corby Santiago MD Stage 3 chronic kidney disease, unspecified whether stage 3a or 3b CKD (HCC) (Primary Dx); Essential hypertension; Renal cell carcinoma of right kidney (HCC); Anemia in stage 3 chronic kidney disease, unspecified whether stage 3a or 3b CKD (HCC); History of vitamin D deficiency; Persistent proteinuria from Last 3 Months Allergies No known active allergies Medications amLODIPine (NORVASC) 10 mg tabletIndicatio ns:hypertension Take 1 tablet (10 mg total) by mouth every morning 02/14/20 18 Active atorvastatin (LIPITOR) 40 mg tablet Take 1 tablet (40 mg total) by mouth nightly 01/29/20 18 Active PRECISION XTRA TEST strip 03/04/20 18 Active SURE COMFORT PEN NEEDLE 31 gauge x 5/16 needle 04/03/20 18 Active metFORMIN (GLUCOPHAGE) 500 mg tabletIndicatio ns:type 2 diabetes mellitus Take 1 tablet (500 mg total) by mouth 2 (two) times a day with meals 03/11/20 18 Active omega 1-jeb-kgk-fish oil 1,000 mg (120 mg-180 mg) capsule Take 1 capsule (1,000 mg total) by mouth every morning Active acetaminophen 500 mg capsule Take 1 capsule (500 mg total) by mouth as needed Active fluticasone propionate (FLONASE) 50 mcg/actuation nasal spray 09/15/20 20 Active triamcinolone (KENALOG) 0.025 % cream Apply topically 2 (two) times a day Active amiodarone (PACERONE) 200 mg tablet Take 1 tablet (200 mg total) by mouth daily Active apixaban (ELIQUIS) 5 mg tablet 08/12/20 21 Active HYDROcodone-janet taminophen (NORCO) 5-325 mg per tablet Take by mouth as needed for pain 10/30/20 22 Active FreeStyle [place] Lite kit 03/05/20 23 Active LANTUS 100 unit/mL (3 mL) pen for injection 03/19/20 23 Active carvediloL (COREG) 25 mg tablet Take 1 tablet (25 mg total) by mouth 2 (two) times a day with meals 180 tablet 3 07/08/20 24 025 Active dapagliflozin propanediol (Farxiga) 10 mg tablet Take 1 tablet (10 mg total) by mouth daily 90 tablet 3 11/14/19 25 Active losartan (COZAAR) 100 mg tablet Take 1 tablet (100 mg total) by mouth daily 360 tablet 01/29/20 25 026 Active chlorthalidone (HYGROTON) 25 mg tablet Take 0.5 tablets (12.5 mg total) by mouth daily 45 tablet 3 02/10/20 25 026 Active losartan (COZAAR) 100 mg tablet Take 1.5 tablets (150 mg total) by mouth daily 135 tablet 3 10/14/20 24 025 Discontinued chlorthalidone (HYGROTON) 25 mg tablet Take 0.5 tablets (12.5 mg total) by mouth daily 15 tablet 11 01/29/20 25 025 Discontinued(Re order) Active Problems Problem Noted Date Diagnosed Date Urinary tract stones 11/13/2019 Overview (11/13/2019): Added automatically from request for surgery [id number] Bladder tumor 10/31/2019 Overview (10/31/2019): Added automatically from request for surgery [id number] Renal cell carcinoma of right kidney 04/30/2018 Essential hypertension 04/24/2018 Type 2 diabetes mellitus 04/24/2018 Anemia in stage 3 chronic kidney disease 018 CKD (chronic kidney disease) stage 3, GFR 30-59 ml/min 01/01/2018 Status post nephrectomy 08/30/2017 Immunizations Immunization Administration Dates Next Due Influenza, Quadrivalent, Leigh l Culture-based MDCK, Preservative Free, Antibiotic Free, Intramuscular 09/12/2022 Legend [employer] (J&J) SARS-CoV-2 Vaccination 01/17/2021 Pfizer Sars-Cov-2 Bivalent Vaccination (12+ YRS) 09/12/2022 Social History Tobacco Use Types Packs/Day Years Used Date Smoking Tobacco: Former Cigarettes 3 30 1 960 - 1989 Smokeless Tobacco: Never Tobacco Cessation:Counseling Given: Not Answered Alcohol Use Standard Drinks/Week Comments Yes 7 (1 standard drink = 0.6 oz pur e alcohol) Sex and Gender Information Value Date Recorded Sex Assigned at Not on file Legal Sex Male 1:20 PM CDT Gender Identity Not on file Sexual Orientation Choose not to disclose 2018 9:08 PM JANITORIAL SUPERVISOR Last Filed Vital Signs Vital Sign Reading Time Taken Comments Blood Pressure 151/75 01/28/2025 1:02 PM CDT Pulse 65 01/28/2025 1:02 PM CDT Temperature 36.8 C (98.2 F) 01/28/2025 1:02 PM CDT Respiratory Rate 11 12/05/2019 12:0 0 PM JANITORIAL SUPERVISOR Oxygen Saturation 98% 12/05/2019 12: 00 PM JANITORIAL SUPERVISOR Inhaled Oxygen Concentration - - Weight 105.6 kg (232 lb 11.2 oz) 01/28/2025 1:02 PM CDT Height 188 cm (6' 2 ) 01/28/2025 1:02 PM CDT Body Mass Index 29.88 01/28/2025 1:02 PM CDT Plan of Treatment Not on file Medical Devices Explanted Type Area Data Storage Specialist Device Identifier Shelf Expiration Date Model / Serial / Lot Ureteral Stent Explanted:Qty: 1 on 12/05/2019 by Kevin Trotter MD at [facility] Left: Ureter Other [employer] [id number] Inlay [place] 6fr 26cm Pusher Fluoro Marker Atraumatic Insertion Latex Free - [id number] Implanted:Qty: 1 on 12/05/2019 by Kevin Trotter MD at [facility] Explanted:Qty: 1 Left: Ureter [employer] [id number] 03/05/2024 [id number] / / [id number] Procedures Procedure Name Priority Date/Time Associated Diagnosis Comments COPY RECEIVED FROM Routine 02/11/2025 8: 32 AM CDT COPY(IES) SENT TO: Routine 02/11/2025 8: 32 AM CDT RENAL FUNCTION PANEL Routine 02/11/2025 8:32 AM CDT Stage 3b chronic kidney disease (HCC) COPY RECEIVED FROM Routine 01/15/2025 12 :21 PM JANITORIAL SUPERVISOR COPY(IES) SENT TO: Routine 01/15/2025 12 :21 PM JANITORIAL SUPERVISOR CBC WITH AUTO DIFFERENTIAL Routine 01/15/2025 12:21 PM JANITORIAL SUPERVISOR Stage 3 chronic kidney disease, unspecified whether stage 3a or 3b CKD (HCC) Essential hypertension Renal cell carcinoma of right kidney (HCC) Anemia in stage 3 chronic kidney disease, unspecified whether stage 3a or 3b CKD (HCC) History of vitamin D deficiency Persistent proteinuria RENAL FUNCTION PANEL Routine 01/15/2025 12:21 PM JANITORIAL SUPERVISOR Stage 3 chronic kidney disease, unspecified whether stage 3a or 3b CKD (HCC) Essential hypertension Renal cell carcinoma of right kidney (HCC) Anemia in stage 3 chronic kidney disease, unspecified whether stage 3a or 3b CKD (HCC) History of vitamin D deficiency Persistent proteinuria PROTEIN / CREATININE RATIO, URINE, RANDOM Routine 01/15/2025 12:21 PM JANITORIAL SUPERVISOR Stage 3 chronic kidney disease, unspecified whether stage 3a or 3b CKD (HCC) Essential hypertension Renal cell carcinoma of right kidney (HCC) Anemia in stage 3 chronic kidney disease, unspecified whether stage 3a or 3b CKD (HCC) History of vitamin D deficiency Persistent proteinuria VITAMIN D 25 HYDROXY Routine 01/15/2025 12:21 PM JANITORIAL SUPERVISOR Stage 3 chronic kidney disease, unspecified whether stage 3a or 3b CKD (HCC) Essential hypertension Renal cell carcinoma of right kidney (HCC) Anemia in stage 3 chronic kidney disease, unspecified whether stage 3a or 3b CKD (HCC) History of vitamin D deficiency Persistent proteinuria REFLEXIVE URINE CULTURE Routine 01/15/2025 12:21 PM JANITORIAL SUPERVISOR URINALYSIS AND REFLEX TO MICROSCOPIC AND CULTURE Routine 01/15/2025 12:21 PM JANITORIAL SUPERVISOR Stage 3 chronic kidney disease, unspecified whether stage 3a or 3b CKD (HCC) Essential hypertension Renal cell carcinoma of right kidney (HCC) Anemia in stage 3 chronic kidney disease, unspecified whether stage 3a or 3b CKD (HCC) History of vitamin D deficiency Persistent proteinuria CT ABDOMEN PELVIS WO CONTRAST Schedule Routine, Read Routine (OP Routine) 10/25/2023 8:10 AM JANITORIAL SUPERVISOR History of kidney cancer LIPID PANEL After X-Ray 06/23/2017 4:10 AM CDT HEMOGLOBIN A1C STAT 06/22/2017 11:45 AM CDT from Last 3 Months or Most Recently Relevant to Health Maintenance Results * Copy received from (02/11/2025 8:32 AM CDT) Copy Rec'd from: [facility] Comment: [facility] U - INTERNAL MED-RENAL [id number] [address] 02/11/2025 8:32 AM CDT 02/11/2025 8:32 AM CDT Elder Vila MD LAB BLOOD ORDERABLES F inal Result Performing Organization Address [facility] de Phone Number [facility] * COPY(IES) SENT TO: (02/11/2025 8:32 AM CDT) COPY(IES) SENT TO: [facility] Comment: [facility] RE[facility] CB [phone] [address] 02/11/2025 8:32 AM CDT 02/11/2025 8:32 AM CDT Elder Vila MD LAB BLOOD ORDERABLES F inal Result Performing Organization Address [facility] Co de Phone Number [facility] * (ABNORMAL) Renal function panel (02/11/2025 8:32 AM CDT) Glucose 163(H) 65 - 99 mg/dL [facility] Comment: Fasting reference interval For someone without known diabetes, a glucose value >125 mg/dL indicates that they may have diabetes and this should be confirmed with a follow-up test. BUN 21 7 - 25 mg/dL [facility] [place] Creatinine 1.82(H) 0.70 - 1.28 mg/dL [facility] [place] eGFR 37(L) > OR = 60 mL/min/1.7 3m2 [facility] [place] BUN/creat ratio 12 6 - 22 (calc) [facility] Sodium 139 135 - 146 mmol/L [facility] [place] Potassium, pl 3.4(L) 3.5 - 5.3 mmol/L [facility] [place] Chloride 102 98 - 110 mmol/L [facility] CO2 29 20 - 32 mmol/L [facility] [place] Calcium 9.1 8.6 - 10.3 mg/dL [facility] Phosphorus, sr 3.7 2.1 - 4.3 mg/dL [facility] Albumin 4.1 3.6 - 5.1 g/dL [facility] Blood 02/11/2025 8:32 AM CDT 02/11/2025 8:32 AM CDT us Elder Vila MD LAB BLOOD ORDERABLES F inal Result Performing Organization Address City/[facility] Co de Phone Number [facility] [address] [place] [address] * Copy received from (01/15/2025 12:21 PM JANITORIAL SUPERVISOR) Copy Rec'd from: [facility] Comment: [facility] U - INTERNAL MED-RENAL CB [phone] [address] 01/15/2025 12:2 1 PM JANITORIAL SUPERVISOR 01/15/2025 12:22 PM JANITORIAL SUPERVISOR Narrative [facility] - 01/16/2025 7:19 AM JANITORIAL SUPERVISOR FASTING:NO FASTING: NO us Corby Santiago MD LAB BLOOD ORDERABLES Fin al Result Performing Organization Address City/[facility]/ZIP Co de Phone Number [facility] * COPY(IES) SENT TO: (01/15/2025 12:21 PM JANITORIAL SUPERVISOR) COPY(IES) SENT TO: [facility] Comment: [facility] RE[facility] [phone] [address] 01/15/2025 12:2 1 PM JANITORIAL SUPERVISOR 01/15/2025 12:22 PM JANITORIAL SUPERVISOR Narrative [facility] - 01/16/2025 7:19 AM JANITORIAL SUPERVISOR FASTING:NO FASTING: NO Corby Santiago MD LAB BLOOD ORDERABLES Fin al Result Performing Organization Address City/[facility]/ZIP Co de Phone Number [facility] * REFLEXIVE URINE CULTURE (01/15/2025 12:21 PM JANITORIAL SUPERVISOR) Urine culture [facility] Comment:NO CULTURE INDICATED 01/15/2025 12:2 1 PM JANITORIAL SUPERVISOR 01/15/2025 12:22 PM JANITORIAL SUPERVISOR Narrative [facility] - 01/16/2025 7:19 AM JANITORIAL SUPERVISOR FASTING:NO FASTING: NO Corby Santiago MD LAB MICROBIOLOGY - GENER AL ORDERABLES Final Result Performing Organization Address [facility] de Phone Number [facility] [address] [place] [address] * (ABNORMAL) Urinalysis reflex to microscopic and culture Urine, clean voided (01/15/2025 12:21 PM JANITORIAL SUPERVISOR) Color, ur YELLOW YELLOW [facility] Appearance, ur CLEAR CLEAR [facility] Specific gravity 1.029 1.001 - 1.035 [facility] pH, ur 6.0 5.0 - 8.0 [facility] Glucose, ur 3+(A) NEGATIVE [facility] Bilirubin, ur NEGATIVE NEGATIVE [facility] Ketones, ur NEGATIVE NEGATIVE [facility] Blood, ur NEGATIVE NEGATIVE [facility] Protein, ur, quant 1+(A) NEGATIVE [facility] Nitrites, ur NEGATIVE NEGATIVE [facility] Leukocyte esterase, ur NEGATIVE NEGATIVE [facility] WBC, ur NONE SEEN < OR = 5 /HPF [facility] RBC, ur NONE SEEN < OR = 2 /HPF [facility] Epithelial cells, squamous, ur NONE SEEN < OR = 5 /HPF [facility] Bacteria, ur, quant NONE SEEN NONE SEEN /HPF [facility] Hyaline cast NONE SEEN NONE SEEN /LPF [facility] Note [facility] Comment: This urine was analyzed for the presence of WBC, RBC, bacteria, casts, and other formed elements. Only those elements seen were reported. Urine, clean voided 01/15/2025 12:21 PM JANITORIAL SUPERVISOR 01/15/2025 12:22 PM JANITORIAL SUPERVISOR Narrative [facility] - 01/16/2025 7:19 AM JANITORIAL SUPERVISOR FASTING:NO FASTING: NO us Corby Santiago MD LAB MICROBIOLOGY - GENER AL ORDERABLES Final Result [facility] [address] [place] [address] * CBC with auto differential (01/15/2025 12:21 PM JANITORIAL SUPERVISOR) WBC 8.1 3.8 - 10.8 Thousand/u L [facility] RBC, POC 4.73 4.20 - 5.80 Million/uL [facility] Hgb 15.1 13.2 - 17.1 g/dL [facility] Hct 45.6 38.5 - 50.0 % [facility] MCV 96.4 80.0 - 100.0 fL [facility] MCH 31.9 27.0 - 33.0 pg [facility] MCHC 33.1 32.0 - 36.0 g/dL [facility] Comment: For adults, a slight decrease in the calculated MCHC value (in the range of 30 to 32 g/dL) is most likely not clinically significant; however, it should be interpreted with caution in correlation with other red cell parameters and the patient's clinical condition. Rdw 13.1 11.0 - 15.0 % [facility] Platelets 199 140 - 400 Thousand/u L [facility] MPV 11.9 7.5 - 12.5 fL [facility] Neutrophils, abs 5,816 1,500 - 7,800 cells/uL [facility] Lymphocytes, abs 1,377 850 - 3,900 cells/uL [facility] Monocyte abs 632 200 - 950 cells/uL [facility] Eosinophils, abs 203 15 - 500 cells/uL [facility] Basophils, abs 73 0 - 200 cells/uL [facility] Neutrophils 71.8 % [facility] Lymphocyte pct 17.0 % [facility] Monocytes 7.8 % [facility] Eosinophils 2.5 % [facility] Basophils 0.9 % [facility] Blood 01/15/2025 12:2 1 PM JANITORIAL SUPERVISOR 01/15/2025 12:22 PM JANITORIAL SUPERVISOR Narrative [facility] - 01/16/2025 7:19 AM JANITORIAL SUPERVISOR FASTING:NO FASTING: NO Corby Santiago MD LAB BLOOD ORDERABLES Fin al Result Performing Organization Address [facility] de Phone Number [facility] [address] [place] [address] * (ABNORMAL) Protein / creatinine ratio, urine, random (01/15/2025 12:21 PM JANITORIAL SUPERVISOR) Pathologist [facility] Creatinine, ur 56 20 - 320 mg/dL [facility] Protein/creati nine ratio 643(H) 25 - 148 mg/g creat [facility] Protein/Creati nine Ratio 0.643(H) 0.025 - 0.148 mg/mg creat [facility] Protein, ur, quant 36(H) 5 - 25 mg/dL [facility] Urine 01/15/2025 12:2 1 PM JANITORIAL SUPERVISOR 01/15/2025 12:22 PM JANITORIAL SUPERVISOR Narrative [facility] - 01/16/2025 7:19 AM JANITORIAL SUPERVISOR FASTING:NO FASTING: NO Corby Santiago MD LAB URINE ORDERABLES Fin al Result Performing Organization Address [facility] Co de Phone Number [facility] [address] [place] [address] * Vitamin D 25 hydroxy (01/15/2025 12:21 PM JANITORIAL SUPERVISOR) Vitamin D 25-OH 35 30 - 100 ng/mL [facility] Comment: Vitamin D Status 25-OH Vitamin D: Deficiency: <20 ng/mL Insufficiency: 20 - 29 ng/mL Optimal: > or = 30 ng/mL For 25-OH Vitamin D testing on patients on D2-supplementation and patients for whom quantitation of D2 and D3 fractions is required, the [facility](TM) 25-OH VIT D, (D2,D3), LC/MS/MS is recommended: order code 85274 (patients >2yrs). See Note 1 Note 1 For additional information, please refer to http://education.Splashscore/faq/EYA474 (This link is being provided for informational/ educational purposes only.) Blood 01/15/2025 12:2 1 PM JANITORIAL SUPERVISOR 01/15/2025 12:22 PM JANITORIAL SUPERVISOR Narrative [facility] - 01/16/2025 7:19 AM JANITORIAL SUPERVISOR FASTING:NO FASTING: NO us Corby Santiago MD LAB BLOOD ORDERABLES Fin al Result [facility] [address] [place] [address] * (ABNORMAL) Renal function panel (01/15/2025 12:21 PM JANITORIAL SUPERVISOR) Pathologist [facility] Glucose 277(H) 65 - 139 mg/dL [facility] Comment: Non-fasting reference interval BUN 26(H) 7 - 25 mg/dL [facility] Creatinine 1.80(H) 0.70 - 1.28 mg/dL [facility] eGFR 38(L) > OR = 60 mL/min/1.7 3m2 [facility] BUN/creat ratio 14 6 - 22 (calc) [facility] [place] Sodium 141 135 - 146 mmol/L [facility] [place] Potassium, pl 4.3 3.5 - 5.3 mmol/L [facility] Chloride 103 98 - 110 mmol/L [facility] [place] CO2 29 20 - 32 mmol/L [facility] Calcium 9.0 8.6 - 10.3 mg/dL [facility] Phosphorus, sr 3.6 2.1 - 4.3 mg/dL [facility] Albumin 4.1 3.6 - 5.1 g/dL [facility] Blood 01/15/2025 12:2 1 PM JANITORIAL SUPERVISOR 01/15/2025 12:22 PM JANITORIAL SUPERVISOR Narrative [facility] - 01/16/2025 7:19 AM JANITORIAL SUPERVISOR FASTING:NO FASTING: NO us Corby Santiago MD LAB BLOOD ORDERABLES Fin al Result [facility] [address] [place] [address] * CT Abdomen Pelvis WO Contrast (10/25/2023 8:10 AM JANITORIAL SUPERVISOR) Anatomical Region Laterality Modality Body N/A Computed Tomogra phy 10/25/2023 11:5 9 PM JANITORIAL SUPERVISOR Narrative 10/26/2023 12:10 AM JANITORIAL SUPERVISOR EXAM DESCRIPTION: CT ABDOMEN PELVIS WO CONTRAST REASON FOR STUDY: Kidney cancer, follow up, history kidney cancer Yearly f/u; Hx of kidney cancer TECHNIQUE: CT scan of the abdomen and pelvis performed without intravenous and without oral contrast using helical scanning technique. Reconstructed coronal and sagittal MPR images reviewed. All images stored on PACS. Automated exposure control was used as a dose optimization technique for this examination. COMPARISON: CT of the abdomen and pelvis of September 25, 2022. REFERENCE: Per ACR white paper recommendations, unless otherwise specified no follow-up imaging is recommended for incidental renal and adrenal lesions per consensus recommendations based on imaging criteria. Further lab evaluation could be pursued based on clinical findings. FINDINGS: The sensitivity for detection of visceral lesions is diminished without the use of intravenous contrast. LOWER CHEST: The lung bases are clear. LIVER: The liver is normal in attenuation without focal lesion. GALLBLADDER: No stones identified. Normal wall. No evidence of pericholecystic fluid. BILE DUCTS: No intrahepatic or extrahepatic ductal dilatation. PANCREAS: Normal. SPLEEN: Normal size. No focal lesions. ADRENALS: Normal. KIDNEYS/URINARY TRACT: The patient is status post right nephrectomy. There are small stable low-density cysts in the left kidney. Urinary bladder is unremarkable. VASCULATURE: There is moderate atherosclerosis of the aorta and its visceral and pelvic branches. GI: The stomach appears normal. There is no significant small bowel dilation or visible thickening. There is a right lower quadrant spigelian hernia containing nonobstructed small bowel. There are scattered diverticula throughout the sigmoid colon. PERITONEUM/MESENTERY: No ascites or free air. There is a left lower quadrant fat containing spigelian hernia. Above the hernia neck there are postoperative changes consistent with prior herniorrhaphy. LYMPH NODES: There are no enlarged lymph nodes seen by CT size criteria. REPRODUCTIVE: The prostate is enlarged, measuring 5.9 x 4.3 cm. The seminal vesicles are unremarkable. MUSCULOSKELETAL: Multilevel degenerative changes are present in the spine. No acute abnormality is seen. No lytic or sclerotic lesions are seen of the bones. OTHER: No other abnormality. IMPRESSION: Status post right nephrectomy. No evidence of metastatic disease within the abdomen or pelvis. Right lower quadrant Spigelian hernia containing nonobstructed small bowel. Left lower quadrant fat containing Spigelian hernia. Enlarged prostate. Colonic diverticulosis without evidence of diverticulitis. Atherosclerosis. THIS IS AN ELECTRONICALLY VERIFIED FINAL REPORT 10/26/2023 12:10 AM - Electronically signed by Gilda Fernandez M.D. SN: SN Report ID: [id number] Reading Location: [id number] Procedure Note Gilda Fernandez MD - 10/26/2023 EXAM DESCRIPTION: CT ABDOMEN PELVIS WO CONTRAST REASON FOR STUDY: Kidney cancer, follow up, history kidney cancer Yearly f/u; Hx of kidney cancer TECHNIQUE: CT scan of the abdomen and pelvis performed without intravenousand without oral contrast using helical scanning technique. Reconstructed coronal and sagittal MPR images reviewed. All images stored on PACS.Automated exposure control was used as a dose optimization technique for this examination. COMPARISON: CT of the abdomen and pelvis of September 25, 2022. REFERENCE: Per ACR white paper recommendations, unless otherwise specifiedno follow-up imaging is recommended for incidental renal and adrenal lesionsper consensus recommendations based on imaging criteria. Further labevaluation could be pursued based on clinical findings. FINDINGS: The sensitivity for detection of visceral lesions is diminished without the use of intravenous contrast. LOWER CHEST: The lung bases are clear. LIVER: The liver is normal in attenuation without focal lesion. GALLBLADDER: No stones identified. Normal wall. No evidence of pericholecystic fluid. BILE DUCTS: No intrahepatic or extrahepatic ductal dilatation. PANCREAS: Normal. SPLEEN: Normal size. No focal lesions. ADRENALS: Normal. KIDNEYS/URINARY TRACT: The patient is status post right nephrectomy.There are small stable low-density cysts in the left kidney. Urinary bladderis unremarkable. VASCULATURE: There is moderate atherosclerosis of the aorta and itsvisceral and pelvic branches. GI: The stomach appears normal. There is no significant small bowel dilation or visible thickening. There is a right lower quadrantspigelian hernia containing nonobstructed small bowel. There are scattereddiverticula throughout the sigmoid colon. PERITONEUM/MESENTERY: No ascites or free air. There is a left lower quadrant fat containing spigelian hernia. Above the hernia neck there are postoperative changes consistent with prior herniorrhaphy. LYMPH NODES: There are no enlarged lymph nodes seen by CT size criteria. REPRODUCTIVE: The prostate is enlarged, measuring 5.9 x 4.3 cm. Theseminal vesicles are unremarkable. MUSCULOSKELETAL: Multilevel degenerative changes are present in thespine. No acute abnormality is seen. No lytic or sclerotic lesions are seen of the bones. OTHER: No other abnormality. IMPRESSION: Status post right nephrectomy. No evidence of metastatic disease withinthe abdomen or pelvis. Right lower quadrant Spigelian hernia containing nonobstructed smallbowel. Left lower quadrant fat containing Spigelian hernia. Enlarged prostate. Colonic diverticulosis without evidence of diverticulitis. Atherosclerosis. THIS IS AN ELECTRONICALLY VERIFIED FINAL REPORT 10/26/2023 12:10 AM - Electronically signed by Gilda Fernandez M.D. SN: Report ID: [id number] Reading Location: [place] [address] Kevin Trotter MD IM CT PROCEDURES Final Result * (ABNORMAL) Lipid panel (06/23/2017 4:10 AM CDT) Cholesterol 125 30 - 200 mg/dL [facility] Comment: Interpretive Data Desirable: <200 mg/dL Borderline high: 200-239 mg/dL High: > or = 240 mg/dL Literature Reference: National Cholesterol Education Program (NCEP) Expert Panel on Detection, Evaluation, and Treatment of High Blood Cholesterol in Adults (Adult Treatment Panel III). Circulation 2004; 110:227. Current interpretive data was last revised on 2015. Triglycerides 124 0 - 150 mg/dL [facility] Comment: Interpretive Data Desirable: < 150 mg/dL Borderline High: 150 - 199 mg/dL High: 200 - 499 mg/dL Very High: > or = 499 mg/dL Literature Reference: See Cholesterol Current interpretive data was last revised on 2015. HDL 30(L) >=40 mg/dL [facility] Comment: Interpretive Data Less than 40 mg/dL - low; A major risk factor for heart disease. Greater than or equal to 60 mg/dL - High; considered protective of heart disease. Literature Reference: See Cholesterol Current interpretive data was last revised on 2015. LDL, calculated 70 10 - 129 mg/dL [facility] Comment: Interpretive Data Optimal: < 100 mg/dL Near Optimal: 100 - 129 mg/dL Borderline High: 130 - 159 mg/dL High: 160 - 189 mg/dL Very high: > or = 190 mg/dL Literature Reference: See Cholesterol Current interpretive data was last revised on 2015. Non-HDL Cholesterol 95 mg/dL [facility] Comment: Interpretive Data When triglycerides are >200 mg/dL, non-HDL C is a secondary target of therapy, with a goal 30 mg/dL higher than the identified LDL-C goal. Reference: See Cholesterol Reference. Current interpretive data was last revised 2015. Blood specimen (specimen) 06/23/2017 4:10 AM CDT 06/23/2017 4:28 AM CDT us Reece Freeman MD LAB BLOOD ORDERABLES Final Resu lt [facility] Department [place] [address] * (ABNORMAL) Hemoglobin A1c (06/22/2017 11:45 AM CDT) Hgb A1C 7.3(H) 4.0 - 6.0 % [facility] Estimated Average Glucose 163 mg/dL [facility] Comment: The ADA recommends reporting an estimated Average Glucose (eAG) with all Hemoglobin A1c results using the equation derived from a study of 507 normal and diabetic adults. Minority populations were underrepresented and children were not included. (Diabetes Care 31:9000-7379, 2008). The eAG is not equivalent to a fasting glucose. Blood specimen (specimen) 06/22/2017 11:45 AM CDT 06/22/2017 11:58 AM CDT us Reece Freeman MD LAB BLOOD ORDERABLES Edited Res ult - Final [facility] Department [place] [address] from Last 3 Months or Most Recently Relevant to Health Maintenance Insurance MEDICARE [facility] FOR LIFE Advance Directives For more information, please contact: [phone] Documents on File Type Date Recorded Patient Photographer Model Expl anation ADVANCE DIRECTIVE 11/13/2019 9:22 AM Power of Cloth Printing Inspector-Medical Care Teams Brass Buffer Relationship Specialty Start Date End Date Antolin Sharpe DO PCP - General 02/09/17
--- OUTSIDE RECORDS SUMMARY | 2025-02-23 07:34 | XMS_ITS | Clinical Summary ---
Author Organization [facility] Address [address] [place] [id number] Care Team Providers Care Reconciling Clerk Name Role Phone Nguyễn Odonnell MD Primary Care Provider [phone] Social History Tobacco Use Types Packs/Day Years Used Date Smoking Tobacco: Never Assessed Sex and Gender Information Value Date Recorded Sex Assigned at Not on file Legal Sex Male 6:19 PM CDT Gender Identity Not on file Sexual Orientation Not on file Plan of Treatment Health Maintenance Due Date Last Done Comments Hepatitis C 1963 DTaP, Tdap and Td Vaccines ( 1 - Tdap) 1964 Zoster Vaccines (1 of 2) 1995 Pneumococcal Vaccine: 50+ Ye ars (1 of 1 - PCV) 2010 RSV Immunization or 60+ Years (1 - 1-dose 75+ series) 2020 COVID-19 Vaccine ( - 2023-2 5 season) 2024 Meningococcal B Vaccine Aged Out No l onger eligible based on patient's age to complete this topic Meningococcal Vaccine Aged Out No akira katherin eligible based on patient's age to complete this topic RSV Immunizations Under 20 Months Aged Out No longer eligible based on patient's age to complete this topic Care Teams Reconciling Clerk Relationship Specialty Start Date End Date Nguyễn Odonnell MD PCP - General 04/24/13
--- OUTSIDE RECORDS SUMMARY | 2025-02-23 07:34 | XMS_ITS | Clinical Summary ---
Author Organization [facility] Address [address] [place] [address] Care Team Providers Care Microbiology Laboratory Manager Name Role Phone Antolin Sharpe DO Primary Care Provider +1- [phone] Allergies No known active allergies Medications amLODIPine [...] day with meals 03/11/20 18 Active omega 2-oig-okw-fish oil 1,000 mg (120 mg-180 mg) capsule [...] needed for pain 10/30/20 22 Active FreeStyle Huffman Lite kit 03/05/20 23 Active LANTUS 100 [...] (11/13/2019): Added automatically from request for surgery [id number] Bladder tumor 10/31/2019 Overview (10/31/2019): Added automatically from request for surgery [id number] Renal cell carcinoma of right kidney 04/30/2018 Essential hypertension 04/24/2018 Type 2 diabetes mellitus 04/24/2018 Anemia in stage 3 chronic kidney disease 02/20/2 018 CKD (chronic kidney disease) stage 3, GFR 30-59 ml/min 01/01/2018 Status post nephrectomy 08/30/2017 Encounters Date Type Department Care Team Description 02/12/2025 Results Follow-Up [facility] [address] [place] [address] [place] [address] Beatriz Soria 02/12/[address] [facility]ph[facility] [address] [place] [address] [place] [phone] Elder Vila MD Hypokalemia (Primary Dx); Stage 3b chronic kidney disease (HCC) 01/28/2025 1:00 PM CDT Office Visit [facility] [address] [place] [address] [place] [phone] Stage 3b chronic kidney disease (HCC) (Primary Dx); Stage 3 chronic kidney disease, unspecified whether stage 3a or 3b CKD (HCC); History of right radical nephrectomy; Essential hypertension; Nephrolithiasis; Renal osteodystrophy 01/28/[address] [facility] [address] [place] [address] [place] [phone] Beatriz Soria 01/13/[address] [facility] [address] [place] [address] [place] [phone] Corby Santiago MD Stage 3 chronic kidney disease, unspecified whether stage 3a or 3b CKD (HCC) (Primary Dx); Essential hypertension; Renal cell carcinoma of right kidney (HCC); Anemia in stage 3 chronic kidney disease, unspecified whether stage 3a or 3b CKD (HCC); History of vitamin D deficiency; Persistent proteinuria from Last 3 Months Immunizations Immunization Administration Dates Next Due Influenza, Quadrivalent, Leigh l Culture-based MDCK, Preservative Free, Antibiotic Free, Intramuscular 09/12/2022 LifeCareSim (J&J) SARS-CoV-2 Vaccination 01/17/2021 Pfizer Sars-Cov-2 Bivalent Vaccination (12+ YRS) 09/12/2022 Surgical History Surgery Date Site/Laterality Comments [place] UNLISTED PROCEDURE ABDOME N PERITONEUM & OMENTUM Hernia Repair - (Added by TW Conv) COLONOSCOPY NEPHRECTOMY Right HERNIA REPAIR CYSTOSTOMY W/ BLADDER BIOPSY Medical History Medical History Date Comments Personal history of other di seases of the circulatory system History of hypertension - (A dded by TW Conv) Personal history of other en docrine, nutritional and metabolic disease History of diabetes mellitus - (Added by TW Conv) Visual disturbance Vision change s - (Added by TW Conv) Sleep apnea History of kidney cancer Kidney stone Type 2 diabetes mellitus (HCC) Cancer (HCC) kidney cancer Bladder cancer (HCC) Arthritis Hypertension Family History Medical History Relation Name Comments Aortic Rupture Father Heart attack Father Family history of myocardial infarction - (Added by TW Conv) Hypertension Father Brain cancer Mother Brain tumor - ( Added by TW Conv) Lung cancer Other Family history of lung cancer - (Added by TW Conv) Relation Name Status Comments Father Mother Other Social History Tobacco Use Types Packs/Day Years Used Date Smoking Tobacco: Former Cigarettes 3 30 1 0 - 1989 Smokeless Tobacco: Never Tobacco Cessation:Counseling Given: Not Answered Alcohol Use Standard Drinks/Week Comments Yes 7 (1 standard drink = 0.6 oz pur e alcohol) Sex and Gender Information Value Date Recorded Sex Assigned at Not on file Legal Sex Male 1:20 PM CDT Gender Identity Not on file Sexual Orientation Choose not to disclose 2018 9:08 PM LAUNDRY AIDE Obstetrics History Last Filed Vital Signs Vital Sign Reading Time Taken Comments Blood Pressure 151/75 01/28/2025 1:02 PM CDT Pulse 65 01/28/2025 1:02 PM CDT Temperature 36.8 C (98.2 F) 01/28/2025 1:02 PM CDT Respiratory Rate 11 12/05/2019 12:0 0 PM LAUNDRY AIDE Oxygen Saturation 98% 12/05/2019 12: 00 PM LAUNDRY AIDE Inhaled Oxygen Concentration - - Weight 105.6 kg (232 lb 11.2 oz) 01/28/2025 1:02 PM CDT Height 188 cm (6' 2 ) 01/28/2025 1:02 PM CDT Body Mass Index 29.88 01/28/2025 1:02 PM CDT Plan of Treatment Health Maintenance Due Date Last Done Comments Albumin Creatinine Ratio, Urine 1945 Depression Screening 1945 Fall Risk Assessment 1945 Hepatitis C Screening 1945 Dilated Eye Exam 1945 Foot Exam 1945 DTaP/Tdap/Td Vaccine (1 - Tdap) 1956 Hepatitis B Screening 1963 Pneumococcal vaccine 65+ (1 of 2 - PCV) 1964 Zoster Vaccine (1 of 2) 1995 Well Visit 65+ 2010 Hemoglobin A1C 12/23/2017 06/22/2017 Lipid Panel 06/23/2018 06/23/2017 Covid-19 Vaccine (5 - 2023-2 5 season) 2025 10/23/2024, 09/12/2022, 10/12/2021, Additional history exists Influenza Vaccine (Season Ended) 2025 09/12/20 22 eGFR 02/11/2026 02/11/2025, 03/0 04/2025, 04/03/2024, Additional history exists Abdominal Aortic Aneurysm (A AA) Screen Completed 10/25/2023, 09/25/2022, 03/26/2020, Additional history exists Medical Devices Explanted Type Area Upholsterer Inside Device Identifier Shelf Expiration Date Model / Serial / Lot Ureteral Stent Explanted:Qty: 1 on 12/05/2019 by Kevin Trotter MD at [facility] Left: Ureter Other [employer] [id number] Inlay [place] 6fr 26cm Pusher Fluoro Marker Atraumatic Insertion Latex Free - [id number] Implanted:Qty: 1 on 12/05/2019 by Kevin Trotter MD at [facility] Explanted:Qty: 1 Left: Ureter [employer] [id number] 03/05/2024 [id number] / / [id number] Procedures Procedure Name Priority Date/Time Associated Diagnosis Comments COPY RECEIVED FROM Routine 02/11/2025 8: 32 AM CDT COPY(IES) SENT TO: Routine 02/11/2025 8: 32 AM CDT RENAL FUNCTION PANEL Routine 02/11/2025 8:32 AM CDT Stage 3b chronic kidney disease (HCC) COPY RECEIVED FROM Routine 01/15/2025 12 :21 PM LAUNDRY AIDE COPY(IES) SENT TO: Routine 01/15/2025 12 :21 PM LAUNDRY AIDE CBC WITH AUTO DIFFERENTIAL Routine 01/15/2025 12:21 PM LAUNDRY AIDE Stage 3 chronic kidney disease, unspecified whether stage 3a or 3b CKD (HCC) Essential hypertension Renal cell carcinoma of right kidney (HCC) Anemia in stage 3 chronic kidney disease, unspecified whether stage 3a or 3b CKD (HCC) History of vitamin D deficiency Persistent proteinuria RENAL FUNCTION PANEL Routine 01/15/2025 12:21 PM LAUNDRY AIDE Stage 3 chronic kidney disease, unspecified whether stage 3a or 3b CKD (HCC) Essential hypertension Renal cell carcinoma of right kidney (HCC) Anemia in stage 3 chronic kidney disease, unspecified whether stage 3a or 3b CKD (HCC) History of vitamin D deficiency Persistent proteinuria PROTEIN / CREATININE RATIO, URINE, RANDOM Routine 01/15/2025 12:21 PM LAUNDRY AIDE Stage 3 chronic kidney disease, unspecified whether stage 3a or 3b CKD (HCC) Essential hypertension Renal cell carcinoma of right kidney (HCC) Anemia in stage 3 chronic kidney disease, unspecified whether stage 3a or 3b CKD (HCC) History of vitamin D deficiency Persistent proteinuria VITAMIN D 25 HYDROXY Routine 01/15/2025 12:21 PM LAUNDRY AIDE Stage 3 chronic kidney disease, unspecified whether stage 3a or 3b CKD (HCC) Essential hypertension Renal cell carcinoma of right kidney (HCC) Anemia in stage 3 chronic kidney disease, unspecified whether stage 3a or 3b CKD (HCC) History of vitamin D deficiency Persistent proteinuria REFLEXIVE URINE CULTURE Routine 01/15/2025 12:21 PM LAUNDRY AIDE URINALYSIS AND REFLEX TO MICROSCOPIC AND CULTURE Routine 01/15/2025 12:21 PM LAUNDRY AIDE Stage 3 chronic kidney disease, unspecified whether stage 3a or 3b CKD (HCC) Essential hypertension Renal cell carcinoma of right kidney (HCC) Anemia in stage 3 chronic kidney disease, unspecified whether stage 3a or 3b CKD (HCC) History of vitamin D deficiency Persistent proteinuria CT ABDOMEN PELVIS WO CONTRAST Schedule Routine, Read Routine (OP Routine) 10/25/2023 8:10 AM LAUNDRY AIDE History of kidney cancer LIPID PANEL After X-Ray 06/23/2017 4:10 AM CDT HEMOGLOBIN A1C STAT 06/22/2017 11:45 AM CDT from Last 3 Months or Most Recently Relevant to Health Maintenance Results * Copy received from (02/11/2025 8:32 AM CDT) Copy Rec'd from: [facility] Comment: [facility] - INTERNAL MED-RENAL CB [id number] [address] 02/11/2025 8:32 AM CDT 02/11/2025 8:32 AM CDT Elder Vila MD LAB BLOOD ORDERABLES F inal Result Performing Organization Address [facility] Co de Phone Number [facility] * COPY(IES) SENT TO: (02/11/2025 8:32 AM CDT) COPY(IES) SENT TO: [facility] Comment: [facility] U INTERNAL MED RENAL CB [id number] [address] 02/11/2025 8:32 AM CDT 02/11/2025 8:32 AM CDT us Elder Vila MD LAB BLOOD ORDERABLES F inal Result Performing Organization Address City/[facility]/ZIP Co de Phone Number [facility] * (ABNORMAL) Renal function panel (02/11/2025 8:32 AM CDT) Glucose 163(H) 65 - 99 mg/dL [facility] Comment: Fasting reference interval For someone without known diabetes, a glucose value >125 mg/dL indicates that they may have diabetes and this should be confirmed with a follow-up test. BUN 21 7 - 25 mg/dL [facility] Creatinine 1.82(H) 0.70 - 1.28 mg/dL [facility] eGFR 37(L) > OR = 60 mL/min/1.7 3m2 [facility] BUN/creat ratio 12 6 - 22 (calc) [facility] Sodium 139 135 - 146 mmol/L [facility] Potassium, pl 3.4(L) 3.5 - 5.3 mmol/L [facility] Chloride 102 98 - 110 mmol/L [facility] CO2 29 20 - 32 mmol/L [facility] Calcium 9.1 8.6 - 10.3 mg/dL [facility] Phosphorus, sr 3.7 2.1 - 4.3 mg/dL [facility] Albumin 4.1 3.6 - 5.1 g/dL [facility] Blood 02/11/2025 8:32 AM CDT 02/11/2025 8:32 AM CDT us Elder Vila MD LAB BLOOD ORDERABLES F inal Result Performing Organization Address [facility] Co de Phone Number [facility] [address] [place] [address] * Copy received from (01/15/2025 12:21 PM LAUNDRY AIDE) Copy Rec'd from: [facility] Comment: [facility] - INTERNAL MED-RENAL CB [id number] [address] 01/15/2025 12:2 1 PM LAUNDRY AIDE 01/15/2025 12:22 PM LAUNDRY AIDE Narrative [facility] - 01/16/2025 7:19 AM LAUNDRY AIDE FASTING:NO FASTING: NO us Corby Santiago MD LAB BLOOD ORDERABLES Fin al Result Performing Organization Address City/[facility]/ZIP Co de Phone Number [facility] * COPY(IES) SENT TO: (01/15/2025 12:21 PM LAUNDRY AIDE) COPY(IES) SENT TO: [facility] Comment: [facility] INTERNAL MED RENAL CB [id number] [address] 01/15/2025 12:2 1 PM LAUNDRY AIDE 01/15/2025 12:22 PM LAUNDRY AIDE Narrative [facility] - 01/16/2025 7:19 AM LAUNDRY AIDE FASTING:NO FASTING: NO Corby Santiago MD LAB BLOOD ORDERABLES Fin al Result [facility] * REFLEXIVE URINE CULTURE (01/15/2025 12:21 PM LAUNDRY AIDE) Urine culture [facility] Comment:NO CULTURE INDICATED 01/15/2025 12:2 1 PM LAUNDRY AIDE 01/15/2025 12:22 PM LAUNDRY AIDE Narrative [facility] - 01/16/2025 7:19 AM LAUNDRY AIDE FASTING:NO FASTING: NO Corby Santiago MD LAB MICROBIOLOGY - GENER AL ORDERABLES Final Result Performing Organization Address [facility] Co de Phone Number [facility] [address] [place] [address] * (ABNORMAL) Urinalysis reflex to microscopic and culture Urine, clean voided (01/15/2025 12:21 PM LAUNDRY AIDE) Color, ur YELLOW YELLOW [facility] [...] NONE SEEN NONE SEEN /HPF [facility] Hyaline cast NONE SEEN NONE SEEN /LPF [facility] Note [facility] Comment: This urine was analyzed for the presence of WBC, RBC, bacteria, casts, and other formed elements. Only those elements seen were reported. Urine, clean voided 01/15/2025 12:21 PM LAUNDRY AIDE 01/15/2025 12:22 PM LAUNDRY AIDE Narrative [facility] - 01/16/2025 7:19 AM LAUNDRY AIDE FASTING:NO FASTING: NO us Corby Santiago MD LAB MICROBIOLOGY - GENER AL ORDERABLES Final Result [facility] [address] [place] [address] * CBC with auto differential (01/15/2025 12:21 PM LAUNDRY AIDE) WBC 8.1 3.8 - 10.8 Thousand/u L [facility] RBC, POC 4.73 4.20 - 5.80 Million/uL [facility] Hgb 15.1 13.2 - 17.1 g/dL [facility] Hct 45.6 38.5 - 50.0 % [facility] MCV 96.4 80.0 - 100.0 fL [facility] MCH 31.9 27.0 - 33.0 pg [facility] MCHC 33.1 32.0 - 36.0 g/dL [facility] Comment: For adults, a slight decrease in the calculated MCHC value (in the range of 30 to 32 g/dL) is most likely not clinically significant; however, it should be interpreted with caution in correlation with other red cell parameters and the patient's clinical condition. Rdw 13.1 11.0 - 15.0 % [facility] Platelets 199 140 - 400 Thousand/u L [facility] MPV 11.9 7.5 - 12.5 fL [facility] Neutrophils, abs 5,816 1,500 - 7,800 cells/uL [facility] Lymphocytes, abs 1,377 850 - 3,900 cells/uL [facility] Monocyte abs 632 200 - 950 cells/uL [facility] Eosinophils, abs 203 15 - 500 cells/uL [facility] Basophils, abs 73 0 - 200 cells/uL [facility] Neutrophils 71.8 % [facility] Lymphocyte pct 17.0 % [facility] Monocytes 7.8 % [facility] Eosinophils 2.5 % [facility] Basophils 0.9 % [facility] Blood 01/15/2025 12:2 1 PM LAUNDRY AIDE 01/15/2025 12:22 PM LAUNDRY AIDE Narrative [facility] - 01/16/2025 7:19 AM LAUNDRY AIDE FASTING:NO FASTING: NO Corby Santiago MD LAB BLOOD ORDERABLES Fin al Result Performing Organization Address City/[facility]/ZIP Co de Phone Number [facility] [address] [place] [address] * (ABNORMAL) Protein / creatinine ratio, urine, random (01/15/2025 12:21 PM LAUNDRY AIDE) Creatinine, ur 56 20 - 320 mg/dL [facility] Protein/creati nine ratio 643(H) 25 - 148 mg/g creat [facility] Protein/Creati nine Ratio 0.643(H) 0.025 - 0.148 mg/mg creat [facility] Protein, ur, quant 36(H) 5 - 25 mg/dL [facility] Urine 01/15/2025 12:2 1 PM LAUNDRY AIDE 01/15/2025 12:22 PM LAUNDRY AIDE Narrative [facility] - 01/16/2025 7:19 AM LAUNDRY AIDE FASTING:NO FASTING: NO Corby Santiago MD LAB URINE ORDERABLES Fin al Result Performing Organization Address City/[facility]/ZIP Co de Phone Number [facility] [address] [place] [address] * Vitamin D 25 hydroxy (01/15/2025 12:21 PM LAUNDRY AIDE) Vitamin D 25-OH 35 30 - 100 [...] D, (D2,D3), LC/MS/MS is recommended: order code 43829 (patients >2yrs). See Note 1 Note 1 For additional information, please refer to http://education.Zokos/faq/OMW361 (This link is being provided for informational/ educational purposes only.) Blood 01/15/2025 12:2 1 PM LAUNDRY AIDE 01/15/2025 12:22 PM LAUNDRY AIDE Narrative [facility] - 01/16/2025 7:19 AM LAUNDRY AIDE FASTING:NO FASTING: NO us Corby Santiago MD LAB BLOOD ORDERABLES Fin al Result [facility] [address] [place] [address] * (ABNORMAL) Renal function panel (01/15/2025 12:21 PM LAUNDRY AIDE) Pathologist [facility] Glucose 277(H) 65 - 139 mg/dL [facility] Comment: Non-fasting reference interval BUN 26(H) 7 - 25 mg/dL [facility] Creatinine 1.80(H) 0.70 - 1.28 mg/dL [facility] eGFR 38(L) > OR = 60 mL/min/1.7 3m2 [facility] BUN/creat ratio 14 6 - 22 (calc) [facility] Sodium 141 135 - 146 mmol/L [facility] Potassium, pl 4.3 3.5 - 5.3 mmol/L [facility] Chloride 103 98 - 110 mmol/L [facility] CO2 29 20 - 32 mmol/L [facility] Calcium 9.0 8.6 - 10.3 mg/dL [facility] Phosphorus, sr 3.6 2.1 - 4.3 mg/dL [facility] Albumin 4.1 3.6 - 5.1 g/dL [facility] Blood 01/15/2025 12:2 1 PM LAUNDRY AIDE 01/15/2025 12:22 PM LAUNDRY AIDE Narrative [facility] - 01/16/2025 7:19 AM LAUNDRY AIDE FASTING:NO FASTING: NO us Corby Santiago MD LAB BLOOD ORDERABLES Fin al Result [facility] [address] [place] [address] * CT Abdomen Pelvis WO Contrast (10/25/2023 8:10 AM LAUNDRY AIDE) Anatomical Region Laterality Modality Body N/A Computed Tomogra phy 10/25/2023 11:5 9 PM LAUNDRY AIDE Narrative 10/26/2023 12:10 AM LAUNDRY AIDE EXAM DESCRIPTION: CT ABDOMEN PELVIS WO CONTRAST [...] Gilda Fernandez M.D. SN: SN Report ID: [id number] Reading Location: [id number] Procedure Note Gilda Fernandez MD - 10/26/2023 [...] by Gilda Fernandez M.D. SN: Report ID: [id number] Reading Location: [place] [address] Kevin Trotter MD IMG CT PROCEDURES Final Result * (ABNORMAL) Lipid [...] 2015. Triglycerides 124 0 - 150 mg/dL [facility] Comment: Interpretive Data Desirable: < 150 mg/dL Borderline High: 150 - 199 mg/dL High: 200 - 499 mg/dL Very High: > or = 499 mg/dL Literature Reference: See Cholesterol Current interpretive data was last revised on 2015. HDL 30(L) >=40 mg/dL [facility] Comment: Interpretive Data Less than 40 mg/dL - low; A major risk factor for heart disease. Greater than or equal to 60 mg/dL - High; considered protective of heart disease. Literature Reference: See Cholesterol Current interpretive data was last revised on 2015. LDL, calculated 70 10 - 129 mg/dL [facility] Comment: Interpretive Data Optimal: < 100 mg/dL Near Optimal: 100 - 129 mg/dL Borderline High: 130 - 159 mg/dL High: 160 - 189 mg/dL Very high: > or = 190 mg/dL Literature Reference: See Cholesterol Current interpretive data was last revised on 2015. Non-HDL Cholesterol 95 mg/dL [facility] Comment: Interpretive Data When triglycerides are >200 mg/dL, non-HDL C is a secondary target of therapy, with a goal 30 mg/dL higher than the identified LDL-C goal. Reference: See Cholesterol Reference. Current interpretive data was last revised 2015. Blood specimen (specimen) 06/23/2017 4:10 AM CDT 06/23/2017 4:28 AM CDT us Reece Freeman MD LAB BLOOD ORDERABLES Final Resu lt [facility] [place] [address] * (ABNORMAL) Hemoglobin A1c (06/22/2017 11:45 AM CDT) Hgb A1C 7.3(H) 4.0 - 6.0 % [facility] Estimated Average Glucose 163 mg/dL [facility] Comment: The ADA recommends reporting an estimated Average Glucose (eAG) with all Hemoglobin A1c results using the equation derived from a study of 507 normal and diabetic adults. Minority populations were underrepresented and children were not included. (Diabetes Care 31:7838-5687, 2008). The eAG is not equivalent to a fasting glucose. Blood specimen (specimen) 06/22/2017 11:45 AM CDT 06/22/2017 11:58 AM CDT Reece Freeman MD LAB BLOOD ORDERABLES Edited Res ult - Final [facility] [place] [address] from Last 3 Months or Most Recently Relevant to Health Maintenance Insurance MEDICARE [employer] MEDICARE FOR LIFE [place] [id number] MEDICARE FOR LIFE Advance Directives For more information, please contact: [phone] Documents on File Type Date Recorded Patient Propellant Charge Loader Expl anation ADVANCE DIRECTIVE 11/13/2019 9:22 AM Power of Member Service Representative-Medical Care Teams Microbiology Laboratory Manager Relationship Specialty Start Date End Date Antolin Sharpe DO PCP - General 02/09/17
--- OUTSIDE RECORDS SUMMARY | 2025-02-23 07:34 | XMS_ITS | Encounter Summary ---
Author Organization [facility] Address [address] [place] [address] Phone Care Team Providers Care Leadership Recruiter Name Role Phone Antolin Sharpe DO Primary Care Provider +1- [phone] Encounter Details Date Type Department Care Team (Latest Contact Info) Description 04/03/2019 Orders Only [facility] Scanning, Provider Social History Tobacco Use Types Packs/Day Years Used Date Smoking Tobacco: Former Smokeless Tobacco: Never Alcohol Use Standard Drinks/Week Comments Yes 1 (1 standard drink = 0.6 oz pur e alcohol) Sex and Gender Information Value Date Recorded Sex Assigned at Not on file Legal Sex Male 1:20 PM CDT Gender Identity Not on file Sexual Orientation Choose not to disclose 2018 9:08 PM PROPOSAL DEVELOPMENT MANAGER documented as of this encounter Plan of Treatment Not on file documented as of this encounter Procedures Procedure Name Priority Date/Time Associated Diagnosis Comments SCAN - LABS 04/03/2019 documented in this encounter Results * SCAN - LABS (04/03/2019) us Provider Scanning Final Result documented in this encounter Visit Diagnoses Not on filedocumented in this encounter Care Teams Leadership Recruiter Relationship Specialty Start Date End Date Antolin Sharpe DO PCP - General 02/09/17 documented as of this encounter
--- OUTSIDE RECORDS SUMMARY | 2025-02-23 07:34 | XMS_ITS | Patient Health Record ---
Author Organization [facility] Billing Info Address [address] [place], [place] [address] [address] Care Team Providers Care Airborne Operations Name Role Phone MARILEE PAZ Unavailable [phone] Reason For Referral No Information Plan Of Treatment No Information Insurance Providers Payer Name Payer Address Payer Phone Subscriber Number Group Number Insured Name Patient Relationship to Insured Coverage Start Date Coverage End Date [place] [address] [address] [place], [place] [id number] Sean Mendez Self - patient is the insured 9 9 FOR LIFE ALL [facility] [address] [place], [place] [id number] Sean Mendez Self - patient is the insured 9 9
--- OUTSIDE RECORDS SUMMARY | 2025-02-23 07:34 | XMS_ITS | Encounter Summary ---
Author Organization [facility] Address [address] [place] [address] Phone Care Team Providers Care Re Dye Hand Name Role Phone Antolin Sharpe DO Primary Care Provider +1- [phone] Encounter Details Date Type Department Care Team (Latest Contact Info) Description 05/30/2018 Orders Only [facility] Scanning, Provider Social History Tobacco Use Types Packs/Day Years Used Date Smoking Tobacco: Former Smokeless Tobacco: Never Sex and Gender Information Value Date Recorded Sex Assigned at Not on file Legal Sex Male 1:20 PM CDT Gender Identity Not on file Sexual Orientation Choose not to disclose 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
--- OUTSIDE RECORDS SUMMARY | 2025-02-23 07:35 | XMS_ITS | Encounter Summary ---
Author Organization [facility] Address [address] [address] Care Team Providers Care Logistics Operations Director Name Role Phone Antolin Sharpe DO Primary Care Provider +1- [phone] Encounter Details Date Type Department Care Team (Late st Contact Info) Description 02/06/2017 Orders Only [facility] ProviderSupriya MD [address] [place] [id number] Social History Tobacco Use Types Packs/Day Years Used Date Smoking Tobacco: Never Assessed Sex and Gender Information Value Date Recorded Sex Assigned at Not on file Legal Sex Male 1:20 PM CDT Gender Identity Not on file Sexual Orientation Choose not to disclose 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 Historical Provider [facility] Final Result documented in this encounter Visit Diagnoses Not on filedocumented in this encounter Care Teams Logistics Operations Director Relationship Specialty Start Date End Date Antolin Sharpe DO PCP - General 02/09/17 documented as of this encounter
--- NOTE | 2025-02-23 08:30 | EST_ITS ---
Patient Info Name: Sean Mendez Age: 79 years : 1945 Gender: Male Ht: 74 in Wt: 225 lbs BSA: 2.33 m2 HR: 56 bpm BP: 147 / 78 mmHg Exam Date: 02/23/2025 9:01 AM Exam Location: Echo Lab Patient Status: Outpatient Admit Date: 02/23/2025 Staff Ordering Physician: Patrice Albrecht DO Attending Provider: Patrice Albrecht DO Exercise Technologist: sravani jacob Exercise Physician: Patrice Albrecht DO Exam Type: CA stress elbert w NM Study Info Indications R07.9 - Chest pain, unspecified A regadenoson stress test was performed. Summary 1. 1. Negative lexiscan stress test for ischemic ST changes by ECG criteria. 2. 2. Baseline hypertension. 3. 3. Nuclear scan to follow and will be reported separately. Please correlate with it. 4. 4. Patient informed of the above results. Protocol: Lexiscan Stress ECG Details Stage: REST Duration (min): 1 min : 31 sec HR (bpm): 57 SBP (mmHg): --- DBP (mmHg): --- Stage: REST Duration (min): 10 min : 30 sec HR (bpm): 55 SBP (mmHg): 147 DBP (mmHg): 78 Stage: REST Duration (min): 13 min : 7 sec HR (bpm): 64 SBP (mmHg): 147 DBP (mmHg): 78 Stage: STAGE 1 Duration (min): 0 min : 59 sec HR (bpm): 57 SBP (mmHg): 137 DBP (mmHg): 77 Stage: RECOVERY Duration (min): 1 min : 0 sec HR (bpm): 63 SBP (mmHg): 137 DBP (mmHg): 77 Stage: RECOVERY Duration (min): 2 min : 0 sec HR (bpm): 63 SBP (mmHg): 137 DBP (mmHg): 77 Stage: RECOVERY Duration (min): 2 min : 54 sec HR (bpm): 64 SBP (mmHg): 141 DBP (mmHg): 77 Rest HR: 64 bpm Peak HR: 64 bpm Rest Sys BP: 147 mmHg Peak Sys BP: 141 mmHg Max Pred HR: 141 bpm % Max Pred HR: 45 % Target HR: 120 bpm Max RPP: 9,024 bpm*mmHg Termination Reason: Completed protocol Cardiac Symptoms: Shortness of breath, Chest discomfort Total Time: 1 min : 0 sec Rest Bartholomew BP: 78 mmHg Peak Bartholomew BP: 77 mmHg Total Dose: 0.4 mg Resting ECG Sinus rhythm. Stress ECG No ST changes. Arrhythmias None. Report Signatures
== END 2025-02-23 07:32 | disposition home or self-care (01) ==
PROVIDERS: PCP Internal Medicine; Visit Provider Internal Medicine Cardiovascular Disease
DX: I21.9 Acute myocardial infarction, unspecified (principal)
CPT/HCPCS: 78452; 93017; A9502; J2785